=== PATIENT | male | born 1965 | race Caucasian/White ===

== ENCOUNTER 2018-08-11 23:46 | Inpatient (IN) | payer MEDICARE, MEDICAID ==
[~2018-08-11] VITALS: Ht 188 cm; Wt 99.8 kg
[2018-08-12] MEDS ORDERED: RIZA10TA PO (00:04)
[2018-08-12] MEDS ORDERED: FENT1PAT19 TD (00:04)
[2018-08-12] MEDS ORDERED: ALBU2.5V8 IH (00:04)
[2018-08-12] MEDS ORDERED: CITA40TA5 PO (00:04)
[2018-08-12] MEDS ORDERED: NITR0.4T22 SL (00:04)
[2018-08-12] MEDS ORDERED: TERA10CA3 PO (00:04)
[2018-08-12] MEDS ORDERED: HYDR4TAB PO (00:04)
[2018-08-12] MEDS ORDERED: ESOM20CA PO (00:04)
[2018-08-12] MEDS ORDERED: LORA-254 PO (00:04)
[2018-08-12] MEDS ORDERED: LORA10TA3 PO (00:04)
[2018-08-12] MEDS ORDERED: ZOLP10TA PO (00:04)
[2018-08-12] MEDS ORDERED: BACL10TA PO (00:04)
[2018-08-12 01:00] VITALS: BP 145/83
[2018-08-12] MEDS ORDERED: ACETAMINOPHEN 325 MG TABLET PO PRN (01:00)
[2018-08-12] MEDS ORDERED: MAG HYDROX/AL HYDROX/SIMETH 30 ML ORAL.SUSP PO PRN (01:00)
[2018-08-12] MEDS ORDERED: MAGNESIUM HYDROXIDE 2,400 MG/30 ML ORAL.SUSP. PO PRN (01:00)
[2018-08-12] MEDS ORDERED: METHYL SALICYLATE/MENTHOL TOPICAL OINTMENT 29GM TUBE. TP PRN (01:00)
[2018-08-12 05:36] VITALS: BP 123/79
[2018-08-12] MEDS ORDERED: LORazepam 1 MG TABLET PO PRN (07:00)
[2018-08-12] MEDS ORDERED: NITROGLYCERIN SUBLINGUAL 0.4 MG BOTTLE OF 25. SL PRN (07:00)
[2018-08-12] MEDS ORDERED: ALBUTEROL SULFATE 2.5 MG/3 ML NEBU. IH PRN (07:00)
[2018-08-12 07:17] LABS: ALBUMIN/GLOBULIN RATIO 0.9 (1.0-1.7); CALCIUM 8.3 mg/dL (8.5-10.1); CREATININE 0.8 mg/dL (0.7-1.3); GFR 100.7; MAGNESIUM 2.2 mg/dL (1.8-2.4); POTASSIUM 3.6 mmol/L (3.5-5.1); TOTAL BILIRUBIN 0.6 mg/dL (0.2-1.0); TOTAL PROTEIN 6.3 g/dL (6.4-8.2)
[2018-08-12 07:23] LABS: BASO % 1 % (0-3); EOS # 0.2 x10^3/uL (0.0-0.7); EOS % 5 % (0-3); HEMATOCRIT 38.1 % (39.0-53.0); HEMOGLOBIN 12.6 g/dL (13.0-17.5); LYMPH # 1.4 x10^3/uL (1.0-4.8); LYMPH % 35 % (24-48); MEAN CORPUSCULAR HEMOGLOBIN 29 pg (25-35); MEAN CORPUSCULAR HGB CONC 33 g/dL (31-37); MEAN CORPUSCULAR VOLUME 87 fL (79-100); MONO # 0.4 x10^3/uL (0.0-1.1); MONO % 11 % (0-9); NEUT % 49 % (31-73); PLATELET COUNT 145 x10^3/uL (140-400); RED BLOOD COUNT 4.39 x10^6/uL (4.30-5.70); RED CELL DISTRIBUTION WIDTH 14.5 % (11.5-14.5)
[2018-08-12] MEDS ORDERED: SUMAtriptan SUCCINATE 50 MG TABLET PO PRN (07:30)
[2018-08-12] MEDS: PANTOPRAZOLE 40 MG TABLET. PO SCH (07:52)
[2018-08-12] MEDS: BACLOFEN 10 MG TABLET PO SCH ×4 (07:52→20:19)
[2018-08-12] MEDS: CITALOPRAM 20 MG TABLET. PO SCH (07:52)
[2018-08-12] MEDS: fentaNYL 75MCG/HR 1 PATCH PATCH TD SCH (07:54)
[2018-08-12] MEDS ORDERED: CETIRIZINE HCL 10 MG TABLET PO PRN (09:00)
[2018-08-12 10:16] LABS: THYROID STIM HORMONE (TSH) 2.656 uIU/mL (0.358-3.740)
[2018-08-12 11:10] LABS: THYROXINE 6.2 ug/dL (4.5-12.0)
[2018-08-12 15:29] VITALS: BP_SYST 129; BP_SYST 140; BP_DIAS 81
[2018-08-12] MEDS: TERAZOSIN 5 MG CAPSULE. PO SCH (20:28)
[2018-08-12] MEDS: ZOLPIDEM 5 MG TABLET. PO SCH (20:28)
--- NOTE | 2018-08-12 21:48 | PDOC ---
Exam Note: Darion Note: Please also refer to the separate dictated note~for this date of service dictated separately.~Patient seen individually. Discussed the patient with Nursing staff reviewed the chart.~Reviewed interim history and current functioning. Reviewed vital signs,~Labs/ Radiology~and current medications noted below. Continue current treatment with the changes noted in the dictated addendum note Assessment: Vital Signs: Vital Signs Date Time Temp Pulse Resp B/P (MAP) Pulse Ox O2 Delivery O2 Flow Rate FiO2 08/12/18 20:28 76 129/81 08/12/18 15:29 97.8 17 96 Labs: Laboratory Tests Test 08/12/18 06:47 White Blood Count 4.0 x10^3/uL (4.0-11.0) Red Blood Count 4.39 x10^6/uL (4.30-5.70) Hemoglobin 12.6 g/dL (13.0-17.5) L Hematocrit 38.1 % (39.0-53.0) L Mean Corpuscular Volume 87 fL (79-100) Mean Corpuscular Hemoglobin 29 pg (25-35) Mean Corpuscular Hemoglobin Concent 33 g/dL (31-37) Red Cell Distribution Width 14.5 % (11.5-14.5) Platelet Count 145 x10^3/uL (140-400) Neutrophils (%) (Auto) 49 % (31-73) Lymphocytes (%) (Auto) 35 % (24-48) Monocytes (%) (Auto) 11 % (0-9) H Eosinophils (%) (Auto) 5 % (0-3) H Basophils (%) (Auto) 1 % (0-3) Neutrophils # (Auto) 2.0 x10^3uL (1.8-7.7) Lymphocytes # (Auto) 1.4 x10^3/uL (1.0-4.8) Monocytes # (Auto) 0.4 x10^3/uL (0.0-1.1) Eosinophils # (Auto) 0.2 x10^3/uL (0.0-0.7) Basophils # (Auto) 0.0 x10^3/uL (0.0-0.2) Sodium Level 142 mmol/L (136-145) Potassium Level 3.6 mmol/L (3.5-5.1) Chloride Level 105 mmol/L (98-107) Carbon Dioxide Level 30 mmol/L (21-32) Anion Gap 7 (6-14) Blood Urea Nitrogen 13 mg/dL (8-26) Creatinine 0.8 mg/dL (0.7-1.3) Estimated GFR (Cockcroft-Gault) 100.7 BUN/Creatinine Ratio 16 (6-20) Glucose Level 94 mg/dL (70-99) Calcium Level 8.3 mg/dL (8.5-10.1) L Magnesium Level 2.2 mg/dL (1.8-2.4) Iron Level 84 ug/dL (65-175) Total Iron Binding Capacity 262 ug/dL (250-450) Iron Saturation 32 % (15-34) Total Bilirubin 0.6 mg/dL (0.2-1.0) Aspartate Amino Transferase (AST) 11 U/L (15-37) L Alanine Aminotransferase (ALT) 8 U/L (16-63) L Alkaline Phosphatase 67 U/L (46-116) Total Protein 6.3 g/dL (6.4-8.2) L Albumin 3.0 g/dL (3.4-5.0) L Albumin/Globulin Ratio 0.9 (1.0-1.7) L Triglycerides Level 39 mg/dL (0-150) Cholesterol Level 142 mg/dL (0-200) LDL Cholesterol, Calculated 100 mg/dL (0-100) VLDL Cholesterol, Calculated 7 mg/dL (0-40) Non-HDL Cholesterol Calculated 107 mg/dL (0-129) HDL Cholesterol 35 mg/dL (40-60) L Cholesterol/HDL Ratio 4.0 Thyroid Stimulating Hormone (TSH) 2.656 uIU/mL (0.358-3.740) Thyroxine (T4) 6.2 ug/dL (4.5-12.0) Total Triiodothyronine (TT3) 71 ng/dL (71-180) Current Medications: Meds: Current Medications Acetaminophen (Tylenol) 650 mg PRN Q6HRS PRN PO PAIN / TEMP; Start 08/12/18 at 01:00 Multi-Ingredient Ointment (Analgesic [place]) 1 siobhan PRN QID PRN TP MUSCLE PAIN; Start 08/12/18 at 01:00 Al Hydroxide/Mg Hydroxide (Mylanta Plus Xs) 15 ml PRN AFTMEALHC PRN PO DYSPEPSIA; Start 08/12/18 at 01:00 Magnesium Hydroxide (Milk Of Magnesia) 2,400 mg PRN QHS PRN PO CONSTIPATION; Start 08/12/18 at 01:00 Albuterol Sulfate (Ventolin) 2.5 mg PRN Q4HRS PRN IH WHEEZING; Start 08/12/18 at 07:00 Lorazepam (Ativan) 1 mg PRN Q6HRS PRN PO ANXIETY / AGITATION; Start 08/12/18 at 07:00 Nitroglycerin (Nitrostat) 0.4 mg PRN Q5MIN PRN SL CHEST PAIN; Start 08/12/18 at 07:00 Baclofen (Lioresal) 25 mg QID PO Last administered on 08/12/18at 20:19; Start 08/12/18 at 09:00 Citalopram Hydrobromide (CeleXA) 40 mg DAILY PO Last administered on 08/12/18at 07:52; Start 08/12/18 at 09:00 Pantoprazole Sodium (Protonix) 40 mg DAILYAC PO Last administered on 08/12/18at 07:52; Start 08/12/18 at 07:30 Fentanyl (Duragesic 75mcg/ Hr) 1 patch Q3DAYS TD Last administered on 08/12/18at 07:54; Start 08/12/18 at 09:00 Hydromorphone HCl (Dilaudid) 8 mg PRN Q4HRS PRN PO PAIN; Start 08/12/18 at 07:30 Cetirizine HCl (ZyrTEC) 10 mg PRN DAILY PRN PO ALLERGIES; Start 08/12/18 at 09: 00 Sumatriptan Succinate (Imitrex) 100 mg PRN DAILY PRN PO MIGRAINE HEADACHE; Start 08/12/18 at 07:30 Terazosin HCl (Hytrin) 10 mg QHS PO Last administered on 08/12/18at 20:28; Start 08/12/18 at 21:00 Zolpidem Tartrate (Ambien) 5 mg HS PO Last administered on 08/12/18at 20:28; Start 08/12/18 at 21:00 Zolpidem Tartrate (Ambien) 5 mg PRN QHS PRN PO INSOMNIA, MR X1 WITHIN 2 HRS; Start 08/12/18 at 07:30 Active Scripts Active Reported FENTANYL 75mcg/hr (Fentanyl) 1 Each Patch.td72 1 Patch TD Q72H NITROGLYCERIN SubLingual (Nitroglycerin) 0.4 Mg Tab.subl 0.4 Mg SL PRN Q5MIN PRN Hydromorphone Hcl 4 Mg Tablet 8 Mg PO PRN Q4HRS PRN Baclofen 10 Mg Tablet 25 Mg PO QID Ventolin Hfa Inhaler (Albuterol Sulfate) 18 Gm Hfa.aer.ad 2 Puff IH PRN Q4HRS PRN Ativan (Lorazepam) 1 Mg Tablet 1 Mg PO PRN Q6HRS PRN Maxalt (Rizatriptan Benzoate) 10 Mg Tablet 10 Mg PO PRN DAILY PRN Loratadine 10 Mg Tablet 10 Mg PO PRN DAILY PRN Nexium Capsule (Esomeprazole Magnesium) 20 Mg Capsule.dr 20 Mg PO DAILYAC Citalopram Hbr (Citalopram Hydrobromide) 40 Mg Tablet 40 Mg PO DAILY Ambien (Zolpidem Tartrate) 10 Mg Tablet 10 Mg PO HS Terazosin Hcl 10 Mg Capsule 10 Mg PO HS I have reviewed the current psychotropics carefully including drug interactions. Risk benefit ratio favors no change other than as noted in my dictated progress note. Diagnosis: Problems: (1) Anxiety disorder (2) Major depressive disorder, recurrent episode (3) Impulse control disorder KENN CRAFT MD Aug 12, 2018 21:48
[2018-08-13 05:35] LABS: HEMOGLOBIN A1C 5.1 % (4.8-5.6)
[2018-08-13 05:41] VITALS: BP 103/67
[2018-08-13] MEDS: BACLOFEN 10 MG TABLET PO SCH ×4 (08:20→20:38)
[2018-08-13] MEDS: PANTOPRAZOLE 40 MG TABLET. PO SCH (08:20)
[2018-08-13] MEDS: CITALOPRAM 20 MG TABLET. PO SCH (08:21)
[2018-08-13] MEDS: SERTRALINE 50 MG TABLET. PO SCH (08:21)
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
[2018-08-13 16:00] VITALS: BP 114/70
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
[2018-08-13] MEDS: ZOLPIDEM 5 MG TABLET. PO SCH (20:39)
[2018-08-13] MEDS: TERAZOSIN 5 MG CAPSULE. PO SCH (20:39)
--- NOTE | 2018-08-13 22:34 | PDOC ---
Exam Note: Darion Note: Please also refer to the separate dictated note~for this date of service dictated separately.~Patient seen individually. Discussed the patient with Nursing staff reviewed the chart.~Reviewed interim history and current functioning. Reviewed vital signs,~Labs/ Radiology~and current medications noted below. Continue current treatment with the changes noted in the dictated addendum note Assessment: Vital Signs: Vital Signs Date Time Temp Pulse Resp B/P (MAP) Pulse Ox O2 Delivery O2 Flow Rate FiO2 08/13/18 20:39 91 114/70 08/13/18 16:00 98.1 18 98 08/13/18 05:41 Room Air I&O Intake and Output 08/13/18 07:00 Intake Total 720 ml Balance 720 ml Intake Oral 720 ml Current Medications: Meds: Current Medications Acetaminophen (Tylenol) 650 mg PRN Q6HRS PRN PO PAIN / TEMP; Start 08/12/18 at 01:00 Multi-Ingredient Ointment (Analgesic [place]) 1 siobhan PRN QID PRN TP MUSCLE PAIN; Start 08/12/18 at 01:00 Al Hydroxide/Mg Hydroxide (Mylanta Plus Xs) 15 ml PRN AFTMEALHC PRN PO DYSPEPSIA; Start 08/12/18 at 01:00 Magnesium Hydroxide (Milk Of Magnesia) 2,400 mg PRN QHS PRN PO CONSTIPATION; Start 08/12/18 at 01:00 Albuterol Sulfate (Ventolin) 2.5 mg PRN Q4HRS PRN IH WHEEZING; Start 08/12/18 at 07:00 Lorazepam (Ativan) 1 mg PRN Q6HRS PRN PO ANXIETY / AGITATION; Start 08/12/18 at 07:00 Nitroglycerin (Nitrostat) 0.4 mg PRN Q5MIN PRN SL CHEST PAIN; Start 08/12/18 at 07:00 Baclofen (Lioresal) 25 mg QID PO Last administered on 08/13/18at 20:38; Start 08/12/18 at 09:00 Citalopram Hydrobromide (CeleXA) 40 mg DAILY PO Last administered on 08/13/18at 08:21; Start 08/12/18 at 09:00 Pantoprazole Sodium (Protonix) 40 mg DAILYAC PO Last administered on 08/13/18at 08:20; Start 08/12/18 at 07:30 Fentanyl (Duragesic 75mcg/ Hr) 1 patch Q3DAYS TD Last administered on 08/12/18at 07:54; Start 08/12/18 at 09:00 Hydromorphone HCl (Dilaudid) 8 mg PRN Q4HRS PRN PO PAIN; Start 08/12/18 at 07:30 Cetirizine HCl (ZyrTEC) 10 mg PRN DAILY PRN PO ALLERGIES; Start 08/12/18 at 09: 00 Sumatriptan Succinate (Imitrex) 100 mg PRN DAILY PRN PO MIGRAINE HEADACHE; Start 08/12/18 at 07:30 Terazosin HCl (Hytrin) 10 mg QHS PO Last administered on 08/13/18at 20:39; Start 08/12/18 at 21:00 Zolpidem Tartrate (Ambien) 5 mg HS PO Last administered on 08/13/18at 20:39; Start 08/12/18 at 21:00 Zolpidem Tartrate (Ambien) 5 mg PRN QHS PRN PO INSOMNIA, MR X1 WITHIN 2 HRS; Start 08/12/18 at 07:30 Sertraline HCl (Zoloft) 50 mg DAILY PO Last administered on 08/13/18at 08:21; Start 08/13/18 at 09:00 Active Scripts Active Reported FENTANYL 75mcg/hr (Fentanyl) 1 Each Patch.td72 1 Patch TD Q72H NITROGLYCERIN SubLingual (Nitroglycerin) 0.4 Mg Tab.subl 0.4 Mg SL PRN Q5MIN PRN Hydromorphone Hcl 4 Mg Tablet 8 Mg PO PRN Q4HRS PRN Baclofen 10 Mg Tablet 25 Mg PO QID Ventolin Hfa Inhaler (Albuterol Sulfate) 18 Gm Hfa.aer.ad 2 Puff IH PRN Q4HRS PRN Ativan (Lorazepam) 1 Mg Tablet 1 Mg PO PRN Q6HRS PRN Maxalt (Rizatriptan Benzoate) 10 Mg Tablet 10 Mg PO PRN DAILY PRN Loratadine 10 Mg Tablet 10 Mg PO PRN DAILY PRN Nexium Capsule (Esomeprazole Magnesium) 20 Mg Capsule.dr 20 Mg PO DAILYAC Citalopram Hbr (Citalopram Hydrobromide) 40 Mg Tablet 40 Mg PO DAILY Ambien (Zolpidem Tartrate) 10 Mg Tablet 10 Mg PO HS Terazosin Hcl 10 Mg Capsule 10 Mg PO HS I have reviewed the current psychotropics carefully including drug interactions. Risk benefit ratio favors no change other than as noted in my dictated progress note. Diagnosis: Problems: (1) Anxiety disorder (2) Major depressive disorder, recurrent episode (3) Impulse control disorder KENN CRAFT MD Aug 13, 2018 22:34
[2018-08-14 05:41] VITALS: BP 121/74
[2018-08-14] MEDS: SERTRALINE 50 MG TABLET. PO SCH (07:40)
[2018-08-14] MEDS: PANTOPRAZOLE 40 MG TABLET. PO SCH (07:40)
[2018-08-14] MEDS: CITALOPRAM 20 MG TABLET. PO SCH (07:40)
[2018-08-14] MEDS: BACLOFEN 10 MG TABLET PO SCH ×4 (07:41→20:47)
[2018-08-14 16:11] VITALS: BP 124/70
--- NOTE | 2018-08-14 20:10 | PN ---
DATE: 08/13/2018 PSYCHIATRIC PROGRESS NOTE This late entry 08/13/2018 covers elements not covered in my initial note. SUBJECTIVE: I met with the patient in the evening. The patient was seen in his room at length. He slept 6 hours previous night. He has been somewhat withdrawn, anxious, but not aggressive. REVIEW OF SYSTEMS: No CV, , pulmonary, eye system symptoms on review. MENTAL STATUS EXAM: Reasonably oriented. Speech has some latency, coherent. Ambulation impaired. Abstraction fair, computation impaired, language function intact, attention span short. Mood and affect somewhat withdrawn, depressed, anxious. LABORATORY DATA: Reviewed. IMPRESSION: Unchanged from initial note. PLAN: Celexa has been changed to Zoloft 50 mg a day. We will adjust gradually. Rest unchanged. MAN Svetlana CRAFT MD DR: SUNIL/mikhail JOB#: [id number] / [id number]
[2018-08-14] MEDS: TERAZOSIN 5 MG CAPSULE. PO SCH (20:47)
[2018-08-14] MEDS: ZOLPIDEM 5 MG TABLET. PO SCH (20:52)
--- NOTE | 2018-08-14 22:28 | PDOC ---
Exam Note: Darion Note: Please also refer to the separate dictated note~for this date of service dictated separately.~Patient seen individually. Discussed the patient with Nursing staff reviewed the chart.~Reviewed interim history and current functioning. Reviewed vital signs,~Labs/ Radiology~and current medications noted below. Continue current treatment with the changes noted in the dictated addendum note Assessment: Vital Signs: Vital Signs Date Time Temp Pulse Resp B/P (MAP) Pulse Ox O2 Delivery O2 Flow Rate FiO2 08/14/18 20:47 79 124/70 08/14/18 16:11 97.9 18 95 Room Air I&O Intake and Output 08/14/18 07:00 Intake Total 1200 ml Balance 1200 ml Intake Oral 1200 ml Current Medications: Meds: Current Medications Acetaminophen (Tylenol) 650 mg PRN Q6HRS PRN PO PAIN / TEMP; Start 08/12/18 at 01:00 Multi-Ingredient Ointment (Analgesic [place]) 1 siobhan PRN QID PRN TP MUSCLE PAIN; Start 08/12/18 at 01:00 Al Hydroxide/Mg Hydroxide (Mylanta Plus Xs) 15 ml PRN AFTMEALHC PRN PO DYSPEPSIA; Start 08/12/18 at 01:00 Magnesium Hydroxide (Milk Of Magnesia) 2,400 mg PRN QHS PRN PO CONSTIPATION; Start 08/12/18 at 01:00 Albuterol Sulfate (Ventolin) 2.5 mg PRN Q4HRS PRN IH WHEEZING; Start 08/12/18 at 07:00 Lorazepam (Ativan) 1 mg PRN Q6HRS PRN PO ANXIETY / AGITATION; Start 08/12/18 at 07:00 Nitroglycerin (Nitrostat) 0.4 mg PRN Q5MIN PRN SL CHEST PAIN; Start 08/12/18 at 07:00 Baclofen (Lioresal) 25 mg QID PO Last administered on 08/14/18at 20:47; Start 08/12/18 at 09:00 Citalopram Hydrobromide (CeleXA) 40 mg DAILY PO Last administered on 08/14/18at 07:40; Start 08/12/18 at 09:00 Pantoprazole Sodium (Protonix) 40 mg DAILYAC PO Last administered on 08/14/18at 07:40; Start 08/12/18 at 07:30 Fentanyl (Duragesic 75mcg/ Hr) 1 patch Q3DAYS TD Last administered on 08/12/18at 07:54; Start 08/12/18 at 09:00 Hydromorphone HCl (Dilaudid) 8 mg PRN Q4HRS PRN PO PAIN; Start 08/12/18 at 07:30 Cetirizine HCl (ZyrTEC) 10 mg PRN DAILY PRN PO ALLERGIES; Start 08/12/18 at 09: 00 Sumatriptan Succinate (Imitrex) 100 mg PRN DAILY PRN PO MIGRAINE HEADACHE; Start 08/12/18 at 07:30 Terazosin HCl (Hytrin) 10 mg QHS PO Last administered on 08/14/18at 20:47; Start 08/12/18 at 21:00 Zolpidem Tartrate (Ambien) 5 mg HS PO Last administered on 08/14/18at 20:52; Start 08/12/18 at 21:00 Zolpidem Tartrate (Ambien) 5 mg PRN QHS PRN PO INSOMNIA, MR X1 WITHIN 2 HRS; Start 08/12/18 at 07:30 Sertraline HCl (Zoloft) 50 mg DAILY PO Last administered on 08/14/18at 07:40; Start 08/13/18 at 09:00 Active Scripts Active Reported FENTANYL 75mcg/hr (Fentanyl) 1 Each Patch.td72 1 Patch TD Q72H NITROGLYCERIN SubLingual (Nitroglycerin) 0.4 Mg Tab.subl 0.4 Mg SL PRN Q5MIN PRN Hydromorphone Hcl 4 Mg Tablet 8 Mg PO PRN Q4HRS PRN Baclofen 10 Mg Tablet 25 Mg PO QID Ventolin Hfa Inhaler (Albuterol Sulfate) 18 Gm Hfa.aer.ad 2 Puff IH PRN Q4HRS PRN Ativan (Lorazepam) 1 Mg Tablet 1 Mg PO PRN Q6HRS PRN Maxalt (Rizatriptan Benzoate) 10 Mg Tablet 10 Mg PO PRN DAILY PRN Loratadine 10 Mg Tablet 10 Mg PO PRN DAILY PRN Nexium Capsule (Esomeprazole Magnesium) 20 Mg Capsule.dr 20 Mg PO DAILYAC Citalopram Hbr (Citalopram Hydrobromide) 40 Mg Tablet 40 Mg PO DAILY Ambien (Zolpidem Tartrate) 10 Mg Tablet 10 Mg PO HS Terazosin Hcl 10 Mg Capsule 10 Mg PO HS I have reviewed the current psychotropics carefully including drug interactions. Risk benefit ratio favors no change other than as noted in my dictated progress note. Diagnosis: Problems: (1) Anxiety disorder (2) Major depressive disorder, recurrent episode (3) Impulse control disorder KENN CRAFT MD Aug 14, 2018 22:28
[2018-08-15 05:44] VITALS: BP 129/75
[2018-08-15] MEDS: BACLOFEN 10 MG TABLET PO SCH ×4 (08:28→21:00)
[2018-08-15] MEDS: PANTOPRAZOLE 40 MG TABLET. PO SCH (08:29)
[2018-08-15] MEDS: SERTRALINE 50 MG TABLET. PO SCH (08:29)
[2018-08-15] MEDS: CITALOPRAM 20 MG TABLET. PO SCH (08:29)
[2018-08-15] MEDS: fentaNYL 75MCG/HR 1 PATCH PATCH TD SCH (08:31)
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
[2018-08-15 16:09] VITALS: BP 136/73
[2018-08-15] MEDS: ZOLPIDEM 5 MG TABLET. PO SCH ×2 (20:59→23:15)
[2018-08-15] MEDS: TERAZOSIN 5 MG CAPSULE. PO SCH (21:00)
--- NOTE | 2018-08-15 22:01 | PDOC ---
Exam Note: Darion Note: Please also refer to the separate dictated note~for this date of service dictated separately.~Patient seen individually. Discussed the patient with Nursing staff reviewed the chart.~Reviewed interim history and current functioning. Reviewed vital signs,~Labs/ Radiology~and current medications noted below. Continue current treatment with the changes noted in the dictated addendum note Assessment: Vital Signs: Vital Signs Date Time Temp Pulse Resp B/P (MAP) Pulse Ox O2 Delivery O2 Flow Rate FiO2 08/15/18 21:00 77 136/73 08/15/18 16:09 97.8 16 96 Room Air I&O Intake and Output 08/15/18 06:59 Intake Total 1080 ml Balance 1080 ml Intake Oral 1080 ml Current Medications: Meds: Current Medications Acetaminophen (Tylenol) 650 mg PRN Q6HRS PRN PO PAIN / TEMP; Start 08/12/18 at 01:00 Multi-Ingredient Ointment (Analgesic [place]) 1 siobhan PRN QID PRN TP MUSCLE PAIN; Start 08/12/18 at 01:00 Al Hydroxide/Mg Hydroxide (Mylanta Plus Xs) 15 ml PRN AFTMEALHC PRN PO DYSPEPSIA; Start 08/12/18 at 01:00 Magnesium Hydroxide (Milk Of Magnesia) 2,400 mg PRN QHS PRN PO CONSTIPATION; Start 08/12/18 at 01:00 Albuterol Sulfate (Ventolin) 2.5 mg PRN Q4HRS PRN IH WHEEZING; Start 08/12/18 at 07:00 Lorazepam (Ativan) 1 mg PRN Q6HRS PRN PO ANXIETY / AGITATION; Start 08/12/18 at 07:00 Nitroglycerin (Nitrostat) 0.4 mg PRN Q5MIN PRN SL CHEST PAIN; Start 08/12/18 at 07:00 Baclofen (Lioresal) 25 mg QID PO Last administered on 08/15/18at 21:00; Start 08/12/18 at 09:00 Citalopram Hydrobromide (CeleXA) 40 mg DAILY PO Last administered on 08/15/18at 08:29; Start 08/12/18 at 09:00 Pantoprazole Sodium (Protonix) 40 mg DAILYAC PO Last administered on 08/15/18at 08:29; Start 08/12/18 at 07:30 Fentanyl (Duragesic 75mcg/ Hr) 1 patch Q3DAYS TD Last administered on 08/15/18at 08:31; Start 08/12/18 at 09:00 Hydromorphone HCl (Dilaudid) 8 mg PRN Q4HRS PRN PO PAIN; Start 08/12/18 at 07:30 Cetirizine HCl (ZyrTEC) 10 mg PRN DAILY PRN PO ALLERGIES; Start 08/12/18 at 09: 00 Sumatriptan Succinate (Imitrex) 100 mg PRN DAILY PRN PO MIGRAINE HEADACHE; Start 08/12/18 at 07:30 Terazosin HCl (Hytrin) 10 mg QHS PO Last administered on 08/15/18at 21:00; Start 08/12/18 at 21:00 Zolpidem Tartrate (Ambien) 5 mg HS PO Last administered on 08/15/18at 20:59; Start 08/12/18 at 21:00 Zolpidem Tartrate (Ambien) 5 mg PRN QHS PRN PO INSOMNIA, MR X1 WITHIN 2 HRS; Start 08/12/18 at 07:30 Sertraline HCl (Zoloft) 50 mg DAILY PO Last administered on 08/15/18at 08:29; Start 08/13/18 at 09:00 Active Scripts Active Reported FENTANYL 75mcg/hr (Fentanyl) 1 Each Patch.td72 1 Patch TD Q72H NITROGLYCERIN SubLingual (Nitroglycerin) 0.4 Mg Tab.subl 0.4 Mg SL PRN Q5MIN PRN Hydromorphone Hcl 4 Mg Tablet 8 Mg PO PRN Q4HRS PRN Baclofen 10 Mg Tablet 25 Mg PO QID Ventolin Hfa Inhaler (Albuterol Sulfate) 18 Gm Hfa.aer.ad 2 Puff IH PRN Q4HRS PRN Ativan (Lorazepam) 1 Mg Tablet 1 Mg PO PRN Q6HRS PRN Maxalt (Rizatriptan Benzoate) 10 Mg Tablet 10 Mg PO PRN DAILY PRN Loratadine 10 Mg Tablet 10 Mg PO PRN DAILY PRN Nexium Capsule (Esomeprazole Magnesium) 20 Mg Capsule.dr 20 Mg PO DAILYAC Citalopram Hbr (Citalopram Hydrobromide) 40 Mg Tablet 40 Mg PO DAILY Ambien (Zolpidem Tartrate) 10 Mg Tablet 10 Mg PO HS Terazosin Hcl 10 Mg Capsule 10 Mg PO HS I have reviewed the current psychotropics carefully including drug interactions. Risk benefit ratio favors no change other than as noted in my dictated progress note. Diagnosis: Problems: (1) Anxiety disorder (2) Major depressive disorder, recurrent episode (3) Impulse control disorder KENN CRAFT MD Aug 15, 2018 22:01
[2018-08-16 05:39] VITALS: BP 124/77
[2018-08-16] MEDS: SERTRALINE 50 MG TABLET. PO SCH (09:40)
[2018-08-16] MEDS: BACLOFEN 10 MG TABLET PO SCH ×4 (09:41→21:00)
[2018-08-16] MEDS: PANTOPRAZOLE 40 MG TABLET. PO SCH (09:41)
--- NOTE | 2018-08-16 13:30 | EKG ---
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
[2018-08-16 16:11] VITALS: BP 92/57
--- NOTE | 2018-08-16 19:31 | PN ---
DATE: 08/15/2018 PSYCHIATRIC PROGRESS NOTE This late entry 08/15/2018 covers elements not covered in my initial note. SUBJECTIVE: I met with the patient individually in his room. He is lying in bed, somewhat withdrawn, even withdrawn at night. REVIEW OF SYSTEMS: Impaired ambulation, at times in wheelchair. No CV, , pulmonary, eye system symptoms on review. MENTAL STATUS EXAM: Reasonably oriented. Speech has some latency, coherent. Abstraction fair, computation impaired, language function intact, attention span short. Mood and affect somewhat withdrawn. LABORATORY DATA: Reviewed. IMPRESSION: Major depressive disorder, recurrent and impulse control disorder; anxiety disorder, unspecified. PLAN: The patient has been started on Zoloft 50 mg a day. We will stop the Celexa. Continue Ambien p.r.n. Rest unchanged for now. MAN Svetlana CRAFT MD DR: SUNIL/mikhail JOB#: [id number] / [id number]
[2018-08-16] MEDS: TERAZOSIN 5 MG CAPSULE. PO SCH (21:01)
[2018-08-16] MEDS: ZOLPIDEM 5 MG TABLET. PO SCH (21:03)
[2018-08-16] MEDS: ZOLPIDEM 5 MG TABLET. PO PRN ×2 (21:04→21:08)
--- NOTE | 2018-08-16 22:14 | PDOC ---
Exam Note: Darion Note: Please also refer to the separate dictated note~for this date of service dictated separately.~Patient seen individually. Discussed the patient with Nursing staff reviewed the chart.~Reviewed interim history and current functioning. Reviewed vital signs,~Labs/ Radiology~and current medications noted below. Continue current treatment with the changes noted in the dictated addendum note Assessment: Vital Signs: Vital Signs Date Time Temp Pulse Resp B/P (MAP) Pulse Ox O2 Delivery O2 Flow Rate FiO2 08/16/18 21:01 69 105/68 08/16/18 16:11 98.1 16 98 08/15/18 16:09 Room Air I&O Intake and Output 08/16/18 06:59 Intake Total 960 ml Balance 960 ml Intake Oral 960 ml Current Medications: Meds: Current Medications Acetaminophen (Tylenol) 650 mg PRN Q6HRS PRN PO PAIN / TEMP; Start 08/12/18 at 01:00 Multi-Ingredient Ointment (Analgesic [place]) 1 siobhan PRN QID PRN TP MUSCLE PAIN; Start 08/12/18 at 01:00 Al Hydroxide/Mg Hydroxide (Mylanta Plus Xs) 15 ml PRN AFTMEALHC PRN PO DYSPEPSIA; Start 08/12/18 at 01:00 Magnesium Hydroxide (Milk Of Magnesia) 2,400 mg PRN QHS PRN PO CONSTIPATION; Start 08/12/18 at 01:00 Albuterol Sulfate (Ventolin) 2.5 mg PRN Q4HRS PRN IH WHEEZING; Start 08/12/18 at 07:00 Lorazepam (Ativan) 1 mg PRN Q6HRS PRN PO ANXIETY / AGITATION; Start 08/12/18 at 07:00 Nitroglycerin (Nitrostat) 0.4 mg PRN Q5MIN PRN SL CHEST PAIN; Start 08/12/18 at 07:00 Baclofen (Lioresal) 25 mg QID PO Last administered on 08/16/18at 21:00; Start 08/12/18 at 09:00 Citalopram Hydrobromide (CeleXA) 40 mg DAILY PO Last administered on 08/15/18at 08:29; Start 08/12/18 at 09:00; Stop 08/16/18 at 09:47; Status DC Pantoprazole Sodium (Protonix) 40 mg DAILYAC PO Last administered on 08/16/18 09:41; Start 08/12/18 at 07:30 Fentanyl (Duragesic 75mcg/ Hr) 1 patch Q3DAYS TD Last administered on 08/15/18 08:31; Start 08/12/18 at 09:00 Hydromorphone HCl (Dilaudid) 8 mg PRN Q4HRS PRN PO PAIN; Start 08/12/18 at 07:30 Cetirizine HCl (ZyrTEC) 10 mg PRN DAILY PRN PO ALLERGIES; Start 08/12/18 at 09: 00 Sumatriptan Succinate (Imitrex) 100 mg PRN DAILY PRN PO MIGRAINE HEADACHE Last administered on 08/15/18 23:16; Start 08/12/18 at 07:30 Terazosin HCl (Hytrin) 10 mg QHS PO Last administered on 08/16/18 21:01; Start 08/12/18 at 21:00 Zolpidem Tartrate (Ambien) 5 mg HS PO Last administered on 08/16/18 21:03; Start 08/12/18 at 21:00 Zolpidem Tartrate (Ambien) 5 mg PRN QHS PRN PO INSOMNIA, MR X1 WITHIN 2 HRS Last administered on 08/16/18 21:08; Start 08/12/18 at 07:30 Sertraline HCl (Zoloft) 50 mg DAILY PO Last administered on 08/16/18 09:40; Start 08/13/18 at 09:00; Stop 08/16/18 at 16:48; Status DC Sertraline HCl (Zoloft) 75 mg DAILY PO ; Start 08/17/18 at 09:00 Active Scripts Active Reported FENTANYL 75mcg/hr (Fentanyl) 1 Each Patch.td72 1 Patch TD Q72H NITROGLYCERIN SubLingual (Nitroglycerin) 0.4 Mg Tab.subl 0.4 Mg SL PRN Q5MIN PRN Hydromorphone Hcl 4 Mg Tablet 8 Mg PO PRN Q4HRS PRN Baclofen 10 Mg Tablet 25 Mg PO QID Ventolin Hfa Inhaler (Albuterol Sulfate) 18 Gm Hfa.aer.ad 2 Puff IH PRN Q4HRS PRN Ativan (Lorazepam) 1 Mg Tablet 1 Mg PO PRN Q6HRS PRN Maxalt (Rizatriptan Benzoate) 10 Mg Tablet 10 Mg PO PRN DAILY PRN Loratadine 10 Mg Tablet 10 Mg PO PRN DAILY PRN Nexium Capsule (Esomeprazole Magnesium) 20 Mg Capsule.dr 20 Mg PO DAILYAC Citalopram Hbr (Citalopram Hydrobromide) 40 Mg Tablet 40 Mg PO DAILY Ambien (Zolpidem Tartrate) 10 Mg Tablet 10 Mg PO HS Terazosin Hcl 10 Mg Capsule 10 Mg PO HS I have reviewed the current psychotropics carefully including drug interactions. Risk benefit ratio favors no change other than as noted in my dictated progress note. Diagnosis: Problems: (1) Anxiety disorder (2) Major depressive disorder, recurrent episode (3) Impulse control disorder KENN CRAFT MD Aug 16, 2018 22:14
[2018-08-16] MEDS ORDERED: ZOLPIDEM 5 MG TABLET. PO ONE (23:45)
[2018-08-17 05:59] VITALS: BP 110/71
[2018-08-17] MEDS: PANTOPRAZOLE 40 MG TABLET. PO SCH (07:51)
[2018-08-17] MEDS: BACLOFEN 10 MG TABLET PO SCH ×4 (07:52→20:04)
[2018-08-17] MEDS: SERTRALINE 50 MG TABLET. PO SCH (07:53)
[2018-08-17 16:21] VITALS: BP 118/72
[2018-08-17] MEDS: TERAZOSIN 5 MG CAPSULE. PO SCH (20:02)
[2018-08-17] MEDS: ZOLPIDEM 5 MG TABLET. PO SCH (20:03)
--- NOTE | 2018-08-17 22:09 | PDOC ---
Exam Note: Darion Note: Please also refer to the separate dictated note~for this date of service dictated separately.~Patient seen individually. Discussed the patient with Nursing staff reviewed the chart.~Reviewed interim history and current functioning. Reviewed vital signs,~Labs/ Radiology~and current medications noted below. Continue current treatment with the changes noted in the dictated addendum note Assessment: Vital Signs: Vital Signs Date Time Temp Pulse Resp B/P (MAP) Pulse Ox O2 Delivery O2 Flow Rate FiO2 08/17/18 20:02 84 118/72 08/17/18 16:21 98.2 16 95 Room Air I&O Intake and Output 08/17/18 06:59 Intake Total 540 ml Balance 540 ml Intake Oral 540 ml # Voids 1 # Bowel Movements 1 Current Medications: Meds: Current Medications Acetaminophen (Tylenol) 650 mg PRN Q6HRS PRN PO PAIN / TEMP; Start 08/12/18 at 01:00 Multi-Ingredient Ointment (Analgesic [place]) 1 siobhan PRN QID PRN TP MUSCLE PAIN; Start 08/12/18 at 01:00 Al Hydroxide/Mg Hydroxide (Mylanta Plus Xs) 15 ml PRN AFTMEALHC PRN PO DYSPEPSIA; Start 08/12/18 at 01:00 Magnesium Hydroxide (Milk Of Magnesia) 2,400 mg PRN QHS PRN PO CONSTIPATION; Start 08/12/18 at 01:00 Albuterol Sulfate (Ventolin) 2.5 mg PRN Q4HRS PRN IH WHEEZING; Start 08/12/18 at 07:00 Lorazepam (Ativan) 1 mg PRN Q6HRS PRN PO ANXIETY / AGITATION; Start 08/12/18 at 07:00 Nitroglycerin (Nitrostat) 0.4 mg PRN Q5MIN PRN SL CHEST PAIN; Start 08/12/18 at 07:00 Baclofen (Lioresal) 25 mg QID PO Last administered on 08/17/18at 20:04; Start 08/12/18 at 09:00 Citalopram Hydrobromide (CeleXA) 40 mg DAILY PO Last administered on 08/15/18at 08:29; Start 08/12/18 at 09:00; Stop 08/16/18 at 09:47; Status DC Pantoprazole Sodium (Protonix) 40 mg DAILYAC PO Last administered on 08/17/18 07:51; Start 08/12/18 at 07:30 Fentanyl (Duragesic 75mcg/ Hr) 1 patch Q3DAYS TD Last administered on 08/15/18 08:31; Start 08/12/18 at 09:00 Hydromorphone HCl (Dilaudid) 8 mg PRN Q4HRS PRN PO PAIN; Start 08/12/18 at 07:30 Cetirizine HCl (ZyrTEC) 10 mg PRN DAILY PRN PO ALLERGIES; Start 08/12/18 at 09: 00 Sumatriptan Succinate (Imitrex) 100 mg PRN DAILY PRN PO MIGRAINE HEADACHE Last administered on 08/15/18 23:16; Start 08/12/18 at 07:30 Terazosin HCl (Hytrin) 10 mg QHS PO Last administered on 08/17/18 20:02; Start 08/12/18 at 21:00 Zolpidem Tartrate (Ambien) 5 mg HS PO Last administered on 08/17/18 20:03; Start 08/12/18 at 21:00 Zolpidem Tartrate (Ambien) 5 mg PRN QHS PRN PO INSOMNIA, MR X1 WITHIN 2 HRS Last administered on 08/16/18 21:08; Start 08/12/18 at 07:30 Sertraline HCl (Zoloft) 50 mg DAILY PO Last administered on 08/16/18 09:40; Start 08/13/18 at 09:00; Stop 08/16/18 at 16:48; Status DC Sertraline HCl (Zoloft) 75 mg DAILY PO Last administered on 08/17/18 07:53; Start 08/17/18 at 09:00 Zolpidem Tartrate (Ambien) 5 mg 1X ONCE PO Last administered on 08/16/18 23:45 ; Start 08/16/18 at 23:45; Stop 08/16/18 at 23:46; Status DC Bupropion HCl (Wellbutrin Xl) 150 mg DAILY PO ; Start 08/18/18 at 09:00 Active Scripts Active Reported FENTANYL 75mcg/hr (Fentanyl) 1 Each Patch.td72 1 Patch TD Q72H NITROGLYCERIN SubLingual (Nitroglycerin) 0.4 Mg Tab.subl 0.4 Mg SL PRN Q5MIN PRN Hydromorphone Hcl 4 Mg Tablet 8 Mg PO PRN Q4HRS PRN Baclofen 10 Mg Tablet 25 Mg PO QID Ventolin Hfa Inhaler (Albuterol Sulfate) 18 Gm Hfa.aer.ad 2 Puff IH PRN Q4HRS PRN Ativan (Lorazepam) 1 Mg Tablet 1 Mg PO PRN Q6HRS PRN Maxalt (Rizatriptan Benzoate) 10 Mg Tablet 10 Mg PO PRN DAILY PRN Loratadine 10 Mg Tablet 10 Mg PO PRN DAILY PRN Nexium Capsule (Esomeprazole Magnesium) 20 Mg Capsule.dr 20 Mg PO DAILYAC Citalopram Hbr (Citalopram Hydrobromide) 40 Mg Tablet 40 Mg PO DAILY Ambien (Zolpidem Tartrate) 10 Mg Tablet 10 Mg PO HS Terazosin Hcl 10 Mg Capsule 10 Mg PO HS I have reviewed the current psychotropics carefully including drug interactions. Risk benefit ratio favors no change other than as noted in my dictated progress note. Diagnosis: Problems: (1) Anxiety disorder (2) Major depressive disorder, recurrent episode (3) Impulse control disorder KENN CRAFT MD Aug 17, 2018 22:09
[2018-08-17] MEDS: ZOLPIDEM 5 MG TABLET. PO PRN (23:14)
[2018-08-18 06:32] VITALS: BP 107/69
[2018-08-18 07:39] LABS: BASO % 1 % (0-3); EOS # 0.2 x10^3/uL (0.0-0.7); EOS % 6 % (0-3); HEMATOCRIT 36.9 % (39.0-53.0); HEMOGLOBIN 12.3 g/dL (13.0-17.5); LYMPH # 1.1 x10^3/uL (1.0-4.8); LYMPH % 27 % (24-48); MEAN CORPUSCULAR HEMOGLOBIN 29 pg (25-35); MEAN CORPUSCULAR HGB CONC 33 g/dL (31-37); MEAN CORPUSCULAR VOLUME 87 fL (79-100); MONO # 0.6 x10^3/uL (0.0-1.1); MONO % 14 % (0-9); NEUT # 2.1 x10^3uL (1.8-7.7); NEUT % 52 % (31-73); PLATELET COUNT 127 x10^3/uL (140-400); RED BLOOD COUNT 4.24 x10^6/uL (4.30-5.70); RED CELL DISTRIBUTION WIDTH 14.5 % (11.5-14.5); WHITE BLOOD COUNT 4.1 x10^3/uL (4.0-11.0)
[2018-08-18] MEDS: PANTOPRAZOLE 40 MG TABLET. PO SCH (07:52)
[2018-08-18] MEDS: BACLOFEN 10 MG TABLET PO SCH ×4 (07:52→19:57)
[2018-08-18] MEDS: SERTRALINE 50 MG TABLET. PO SCH (07:53)
[2018-08-18] MEDS: buPROPion XL 150 MG TAB.ER.24H PO SCH (07:55)
[2018-08-18 08:08] LABS: ALBUMIN 3.3 g/dL (3.4-5.0); ALBUMIN/GLOBULIN RATIO 1.1 (1.0-1.7); CALCIUM 8.5 mg/dL (8.5-10.1); CREATININE 0.7 mg/dL (0.7-1.3); GFR 117.5; POTASSIUM 4.2 mmol/L (3.5-5.1); TOTAL BILIRUBIN 0.5 mg/dL (0.2-1.0); TOTAL PROTEIN 6.3 g/dL (6.4-8.2)
[2018-08-18] MEDS: fentaNYL 75MCG/HR 1 PATCH PATCH TD SCH (08:37)
[2018-08-18 16:16] VITALS: BP 107/66
[2018-08-18] MEDS: ZOLPIDEM 5 MG TABLET. PO SCH (19:57)
[2018-08-18] MEDS: TERAZOSIN 5 MG CAPSULE. PO SCH (19:58)
--- NOTE | 2018-08-18 19:58 | PN ---
DATE: 08/16/2018 PSYCHIATRIC PROGRESS NOTE This late entry 08/16/2018 covers elements not covered in my initial note. SUBJECTIVE: I met with the patient in the evening. The patient isolates in his room, somewhat withdrawn, except at lunchtime, he spent time in his room, compliant with medications. Previous night he was having migraine headaches, received Imitrex, but he slept 7 hours previous night. Remains somewhat depressed. REVIEW OF SYSTEMS: Impaired interaction. No CV, , pulmonary system symptoms on review, does complain of some tiredness. MENTAL STATUS EXAM: Reasonably oriented. Speech moderate latency, often responses monosyllabic, coherent. Abstraction fair, computation impaired, language function intact. Mood and affect somewhat withdrawn. LABORATORY DATA: Reviewed. IMPRESSION: Unchanged from initial note. PLAN: Increase Zoloft from 50 mg a day to 75 mg a day. Rest unchanged. MAN Svetlana CRAFT MD DR: SUNIL/mikhail JOB#: [id number] / [id number]
[2018-08-18] MEDS: hydrOXYzine HCL 25 MG TABLET PO PRN (19:59)
--- NOTE | 2018-08-18 20:00 | PN ---
DATE: 08/17/2018 PSYCHIATRIC PROGRESS NOTE This late entry 08/17/2018 covers elements not covered in my initial note. SUBJECTIVE: I met with the patient in the evening and staffed at treatment team meeting earlier in the day. The patient slept 4-1/4 hours previous night, 7 hours average, incontinent at times. He was tearful, crying when he was wet on it himself, withdrawn, still depressed. REVIEW OF SYSTEMS: No CV, , pulmonary, eye system symptoms on review. MENTAL STATUS EXAM: Reasonably oriented. Speech moderate latency, often responses monosyllabic. Abstraction fair, computation impaired, language function intact. Mood and affect withdrawn. He always wants me to shut the door of his room as I am leaving, isolates. LABORATORY DATA: Reviewed. IMPRESSION: Major depressive disorder, impulse control disorder. PLAN: Continue current psychotropics and add Wellbutrin-XL 150 mg in the morning to help with motivation and to augment the Zoloft 75 mg a day. Rest unchanged. MAN Svetlana CRAFT MD DR: SUNIL/mikhail JOB#: [id number] / [id number]
--- NOTE | 2018-08-18 22:29 | PDOC ---
Exam Note: Darion Note: Please also refer to the separate dictated note~for this date of service dictated separately.~Patient seen individually. Discussed the patient with Nursing staff reviewed the chart.~Reviewed interim history and current functioning. Reviewed vital signs,~Labs/ Radiology~and current medications noted below. Continue current treatment with the changes noted in the dictated addendum note Assessment: Vital Signs: Vital Signs Date Time Temp Pulse Resp B/P (MAP) Pulse Ox O2 Delivery O2 Flow Rate FiO2 08/18/18 19:58 75 107/66 08/18/18 16:16 98.0 18 97 Room Air I&O Intake and Output 08/18/18 06:59 Intake Total 960 ml Balance 960 ml Intake Oral 960 ml Labs: Laboratory Tests Test 08/18/18 06:56 White Blood Count 4.1 x10^3/uL (4.0-11.0) Red Blood Count 4.24 x10^6/uL (4.30-5.70) L Hemoglobin 12.3 g/dL (13.0-17.5) L Hematocrit 36.9 % (39.0-53.0) L Mean Corpuscular Volume 87 fL (79-100) Mean Corpuscular Hemoglobin 29 pg (25-35) Mean Corpuscular Hemoglobin Concent 33 g/dL (31-37) Red Cell Distribution Width 14.5 % (11.5-14.5) Platelet Count 127 x10^3/uL (140-400) L Neutrophils (%) (Auto) 52 % (31-73) Lymphocytes (%) (Auto) 27 % (24-48) Monocytes (%) (Auto) 14 % (0-9) H Eosinophils (%) (Auto) 6 % (0-3) H Basophils (%) (Auto) 1 % (0-3) Neutrophils # (Auto) 2.1 x10^3uL (1.8-7.7) Lymphocytes # (Auto) 1.1 x10^3/uL (1.0-4.8) Monocytes # (Auto) 0.6 x10^3/uL (0.0-1.1) Eosinophils # (Auto) 0.2 x10^3/uL (0.0-0.7) Basophils # (Auto) 0.0 x10^3/uL (0.0-0.2) Sodium Level 141 mmol/L (136-145) Potassium Level 4.2 mmol/L (3.5-5.1) Chloride Level 104 mmol/L (98-107) Carbon Dioxide Level 27 mmol/L (21-32) Anion Gap 10 (6-14) Blood Urea Nitrogen 20 mg/dL (8-26) Creatinine 0.7 mg/dL (0.7-1.3) Estimated GFR (Cockcroft-Gault) 117.5 BUN/Creatinine Ratio 29 (6-20) H Glucose Level 87 mg/dL (70-99) Calcium Level 8.5 mg/dL (8.5-10.1) Total Bilirubin 0.5 mg/dL (0.2-1.0) Aspartate Amino Transferase (AST) 15 U/L (15-37) Alanine Aminotransferase (ALT) 14 U/L (16-63) L Alkaline Phosphatase 68 U/L (46-116) Total Protein 6.3 g/dL (6.4-8.2) L Albumin 3.3 g/dL (3.4-5.0) L Albumin/Globulin Ratio 1.1 (1.0-1.7) Current Medications: Meds: Current Medications Acetaminophen (Tylenol) 650 mg PRN Q6HRS PRN PO PAIN / TEMP Last administered on 08/18/18at 02:26; Start 08/12/18 at 01:00 Multi-Ingredient Ointment (Analgesic [place]) 1 siobhan PRN QID PRN TP MUSCLE PAIN; Start 08/12/18 at 01:00 Al Hydroxide/Mg Hydroxide (Mylanta Plus Xs) 15 ml PRN AFTMEALHC PRN PO DYSPEPSIA; Start 08/12/18 at 01:00 Magnesium Hydroxide (Milk Of Magnesia) 2,400 mg PRN QHS PRN PO CONSTIPATION; Start 08/12/18 at 01:00 Albuterol Sulfate (Ventolin) 2.5 mg PRN Q4HRS PRN IH WHEEZING; Start 08/12/18 at 07:00 Lorazepam (Ativan) 1 mg PRN Q6HRS PRN PO ANXIETY / AGITATION Last administered on 08/18/18at 02:26; Start 08/12/18 at 07:00 Nitroglycerin (Nitrostat) 0.4 mg PRN Q5MIN PRN SL CHEST PAIN; Start 08/12/18 at 07:00 Baclofen (Lioresal) 25 mg QID PO Last administered on 08/18/18 19:57; Start 08/12/18 at 09:00 Citalopram Hydrobromide (CeleXA) 40 mg DAILY PO Last administered on 08/15/18 08:29; Start 08/12/18 at 09:00; Stop 08/16/18 at 09:47; Status DC Pantoprazole Sodium (Protonix) 40 mg DAILYAC PO Last administered on 08/18/18 07:52; Start 08/12/18 at 07:30 Fentanyl (Duragesic 75mcg/ Hr) 1 patch Q3DAYS TD Last administered on 08/18/18 08:37; Start 08/12/18 at 09:00 Hydromorphone HCl (Dilaudid) 8 mg PRN Q4HRS PRN PO PAIN; Start 08/12/18 at 07:30 Cetirizine HCl (ZyrTEC) 10 mg PRN DAILY PRN PO ALLERGIES; Start 08/12/18 at 09: 00 Sumatriptan Succinate (Imitrex) 100 mg PRN DAILY PRN PO MIGRAINE HEADACHE Last administered on 08/15/18 23:16; Start 08/12/18 at 07:30 Terazosin HCl (Hytrin) 10 mg QHS PO Last administered on 08/18/18 19:58; Start 08/12/18 at 21:00 Zolpidem Tartrate (Ambien) 5 mg HS PO Last administered on 08/18/18 19:57; Start 08/12/18 at 21:00 Zolpidem Tartrate (Ambien) 5 mg PRN QHS PRN PO INSOMNIA, MR X1 WITHIN 2 HRS Last administered on 08/17/18 23:14; Start 08/12/18 at 07:30 Sertraline HCl (Zoloft) 50 mg DAILY PO Last administered on 08/16/18 09:40; Start 08/13/18 at 09:00; Stop 08/16/18 at 16:48; Status DC Sertraline HCl (Zoloft) 75 mg DAILY PO Last administered on 08/18/18 07:53; Start 08/17/18 at 09:00 Zolpidem Tartrate (Ambien) 5 mg 1X ONCE PO Last administered on 08/16/18 23:45 ; Start 08/16/18 at 23:45; Stop 08/16/18 at 23:46; Status DC Bupropion HCl (Wellbutrin Xl) 150 mg DAILY PO Last administered on 08/18/18 07: 55; Start 08/18/18 at 09:00 Hydroxyzine HCl (Atarax) 25 mg PRN QHS PRN PO INSOMNIA, MAY REPEAT X1 Last administered on 08/18/18at 19:59; Start 08/18/18 at 19:30 Active Scripts Active Reported FENTANYL 75mcg/hr (Fentanyl) 1 Each Patch.td72 1 Patch TD Q72H NITROGLYCERIN SubLingual (Nitroglycerin) 0.4 Mg Tab.subl 0.4 Mg SL PRN Q5MIN PRN Hydromorphone Hcl 4 Mg Tablet 8 Mg PO PRN Q4HRS PRN Baclofen 10 Mg Tablet 25 Mg PO QID Ventolin Hfa Inhaler (Albuterol Sulfate) 18 Gm Hfa.aer.ad 2 Puff IH PRN Q4HRS PRN Ativan (Lorazepam) 1 Mg Tablet 1 Mg PO PRN Q6HRS PRN Maxalt (Rizatriptan Benzoate) 10 Mg Tablet 10 Mg PO PRN DAILY PRN Loratadine 10 Mg Tablet 10 Mg PO PRN DAILY PRN Nexium Capsule (Esomeprazole Magnesium) 20 Mg Capsule.dr 20 Mg PO DAILYAC Citalopram Hbr (Citalopram Hydrobromide) 40 Mg Tablet 40 Mg PO DAILY Ambien (Zolpidem Tartrate) 10 Mg Tablet 10 Mg PO HS Terazosin Hcl 10 Mg Capsule 10 Mg PO HS I have reviewed the current psychotropics carefully including drug interactions. Risk benefit ratio favors no change other than as noted in my dictated progress note. Diagnosis: Problems: (1) Anxiety disorder (2) Major depressive disorder, recurrent episode (3) Impulse control disorder KENN CRAFT MD Aug 18, 2018 22:28
[2018-08-18] MEDS: ZOLPIDEM 5 MG TABLET. PO PRN (22:46)
[2018-08-19] MEDS: HYDROmorphone 2 MG TABLET PO PRN (01:18)
[2018-08-19 05:45] VITALS: BP 105/56
[2018-08-19] MEDS: buPROPion XL 150 MG TAB.ER.24H PO SCH (07:35)
[2018-08-19] MEDS: PANTOPRAZOLE 40 MG TABLET. PO SCH (07:35)
[2018-08-19] MEDS: SERTRALINE 50 MG TABLET. PO SCH (07:35)
[2018-08-19] MEDS: BACLOFEN 10 MG TABLET PO SCH ×4 (07:35→19:29)
[2018-08-19 15:50] VITALS: BP 108/62
[2018-08-19] MEDS: TERAZOSIN 5 MG CAPSULE. PO SCH (19:29)
[2018-08-19] MEDS: ZOLPIDEM 5 MG TABLET. PO SCH (19:30)
[2018-08-19] MEDS: hydrOXYzine HCL 25 MG TABLET PO PRN ×2 (19:30→22:43)
--- NOTE | 2018-08-19 22:42 | PN ---
DATE: 08/19/2018 SUBJECTIVE: The patient was seen today, met with the staff, chart reviewed. The patient complains of not able to sleep. Apparently, he had problems with chronic insomnia. The patient was much calmer. Staff reports no major behavior problems. OBSERVATION: VITAL SIGNS: Temperature 97.4, blood pressure 105/56, pulse 83, respirations 18, O2 sat 96%. GENERAL: Slept only about 2 hours last night. The patient's appetite is fair. PSYCHIATRIC: The patient states he likes to be left alone then admits to feeling depressed, also irritable, and gillette at times. MEDICATIONS: The patient's current medications include bupropion 150 mg daily, Zoloft 75 mg daily, Ambien 5 mg at night, Hytrin 10 mg at night, fentanyl patch 75 mcg q. 3 days, baclofen 25 mg q.i.d., Imitrex 100 mg p.r.n. daily for migraine headaches, and lorazepam 1 mg q. 6 hours p.r.n. The patient is not having any side effects to the medications. LABORATORY DATA: The patient's lab reviewed, no significant change from the previous level. ASSESSMENT: 1. Major depressive disorder, recurrent. 2. Generalized anxiety disorder. Continue with the current treatment plan. NAYLA MA MD DR: NADIRA/mikhail JOB#: [id number] / [id number]
[2018-08-19] MEDS: ZOLPIDEM 5 MG TABLET. PO PRN (22:43)
[2018-08-20] MEDS: HYDROmorphone 2 MG TABLET PO PRN ×3 (05:20→18:27)
[2018-08-20 06:05] VITALS: BP 110/71
[2018-08-20] MEDS: PANTOPRAZOLE 40 MG TABLET. PO SCH (07:57)
[2018-08-20] MEDS: buPROPion XL 150 MG TAB.ER.24H PO SCH (07:57)
[2018-08-20] MEDS: BACLOFEN 10 MG TABLET PO SCH ×4 (07:58→20:00)
[2018-08-20] MEDS: SERTRALINE 50 MG TABLET. PO SCH (07:58)
[2018-08-20 16:10] VITALS: BP 129/71
[2018-08-20] MEDS: ZOLPIDEM 5 MG TABLET. PO SCH (19:59)
[2018-08-20] MEDS: TERAZOSIN 5 MG CAPSULE. PO SCH (20:00)
[2018-08-20] MEDS: ZOLPIDEM 5 MG TABLET. PO PRN (22:38)
--- NOTE | 2018-08-20 22:58 | PN ---
DATE: 08/18/2018 PSYCHIATRIC PROGRESS NOTE This late entry 08/18/2018 covers elements not covered in my initial note. SUBJECTIVE: I met with the patient in the evening. The patient has been resistive with the bedtime medications, agitated, was spitting staff per nursing reports. Compliant with medications. did get her breakfast. REVIEW OF SYSTEMS: I met with him in his room. Ambulation impaired. No CV, , pulmonary, eye, ENT system symptoms on review. At the end of my visit, he was insistent that I locked the door behind him. MENTAL STATUS EXAM: Reasonably oriented. Speech has some latency, coherent. Abstraction fair, computation impaired, language function intact, attention span short. Mood and affect, somewhat depressed, anxious. No suicidal or homicidal ideation. LABORATORY DATA: Reviewed. IMPRESSION: Unchanged from initial note. PLAN: Start trazodone 50 mg at bedtime p.r.n. insomnia, may repeat x 1. Rest unchanged from initial note. MAN Svetlana CRAFT MD DR: SUNIL/mikhail JOB#: [id number] / [id number]
[2018-08-21] MEDS: HYDROmorphone 2 MG TABLET PO PRN ×4 (00:26→23:38)
--- NOTE | 2018-08-21 01:44 | PN ---
DATE: 08/20/2018 SUBJECTIVE: The patient was seen today, met with the staff, chart reviewed. Staff reports no major problems except he is not sleeping well. OBSERVATION: Vital signs stable. Appetite fair. Sleep decreased. The patient is compliant with medications. Currently on bupropion 150 mg daily, Zoloft 75 mg daily, Ambien 5 mg at night, Hytrin 10 mg at night. He is also on fentanyl patch, baclofen, and lorazepam. The patient is not having any side effects. ASSESSMENT: 1. Major depressive disorder, recurrent. 2. Generalized anxiety disorder. PLAN: To continue the treatment. NAYLA MA MD DR: NADIRA/mikhail JOB#: [id number] / [id number]
[2018-08-21 06:02] VITALS: BP 98/63
[2018-08-21] MEDS: buPROPion XL 150 MG TAB.ER.24H PO SCH (08:34)
[2018-08-21] MEDS: SERTRALINE 50 MG TABLET. PO SCH (08:35)
[2018-08-21] MEDS: fentaNYL 75MCG/HR 1 PATCH PATCH TD SCH (08:35)
[2018-08-21] MEDS: PANTOPRAZOLE 40 MG TABLET. PO SCH (08:35)
[2018-08-21] MEDS: BACLOFEN 10 MG TABLET PO SCH ×4 (08:35→20:06)
[2018-08-21 16:20] VITALS: BP 111/77
[2018-08-21] MEDS: TERAZOSIN 5 MG CAPSULE. PO SCH (20:05)
[2018-08-21] MEDS: ZOLPIDEM 5 MG TABLET. PO SCH (20:07)
[2018-08-21] MEDS: hydrOXYzine HCL 25 MG TABLET PO PRN ×2 (20:07→22:31)
[2018-08-21] MEDS: ZOLPIDEM 5 MG TABLET. PO PRN (22:31)
--- NOTE | 2018-08-22 02:28 | PN ---
DATE: 08/21/2018 SUBJECTIVE: The patient was seen today, met with the staff, chart reviewed. The patient is constantly complaining about pain seeking medication for pain constantly. He is also isolating himself, likes to be left alone, also feeling depressed. OBJECTIVE: VITAL SIGNS: Temperature 98, blood pressure 98/63, pulse 81, respirations 16, O2 sat 100%. Slept about 4 hours last night. CURRENT MEDICATIONS: The patient's current medications include bupropion 150 mg daily, Zoloft 75 mg daily, Ambien 5 mg at night, Hytrin 10 mg at night. The patient is also on fentanyl patch, baclofen, lorazepam. The patient denies of any side effects. ASSESSMENT: 1. Major depressive disorder, recurrent. 2. Generalized anxiety disorder. PLAN: Continue with the treatment. The patient is planned for discharge at the end of week if continues to show improvement. NAYLA MA MD DR: NADIRA/mikhali JOB#: [id number] / [id number]
[2018-08-22 06:22] VITALS: BP 92/62
[2018-08-22] MEDS: buPROPion XL 150 MG TAB.ER.24H PO SCH (09:00)
[2018-08-22] MEDS: PANTOPRAZOLE 40 MG TABLET. PO SCH (09:38)
[2018-08-22] MEDS: BACLOFEN 10 MG TABLET PO SCH ×4 (09:38→21:12)
[2018-08-22] MEDS: SERTRALINE 50 MG TABLET. PO SCH (09:38)
[2018-08-22] MEDS: HYDROmorphone 2 MG TABLET PO PRN ×2 (12:43→22:18)
[2018-08-22 16:09] VITALS: BP 108/72
[2018-08-22] MEDS: TERAZOSIN 5 MG CAPSULE. PO SCH (21:11)
[2018-08-22] MEDS: ZOLPIDEM 5 MG TABLET. PO SCH (21:12)
--- NOTE | 2018-08-23 01:25 | PN ---
DATE: 08/22/2018 SUBJECTIVE: The patient was seen today, met with the staff, chart reviewed. The patient's behavior remains the same, complaining of pain, isolating himself, staying in bed most of the time. The patient is also irritable and gillette. OBJECTIVE: VITAL SIGNS: Temperature 98.8, blood pressure 108/72, pulse 90, respirations 20, O2 sat 95%. MEDICATIONS: The patient's current medications include bupropion 150 mg daily, Zoloft 75 mg daily, Ambien 5 mg at night, Hytrin 5 mg at night. The patient is not having any major side effects. ASSESSMENT: 1. Major depressive disorder, recurrent. 2. Generalized anxiety disorder. PLAN: To continue with the treatment. NAYLA MA MD DR: NADIRA/mikhail JOB#: [id number] / [id number]
[2018-08-23] MEDS: PANTOPRAZOLE 40 MG TABLET. PO SCH (08:16)
[2018-08-23] MEDS: SERTRALINE 50 MG TABLET. PO SCH (08:16)
[2018-08-23] MEDS: BACLOFEN 10 MG TABLET PO SCH ×4 (08:16→20:04)
[2018-08-23] MEDS: buPROPion XL 150 MG TAB.ER.24H PO SCH (08:16)
[2018-08-23 09:00] VITALS: BP 108/72
[2018-08-23 17:10] VITALS: BP 114/72
[2018-08-23] MEDS: HYDROmorphone 2 MG TABLET PO PRN (17:53)
[2018-08-23] MEDS: ZOLPIDEM 5 MG TABLET. PO SCH (20:03)
[2018-08-23] MEDS: TERAZOSIN 5 MG CAPSULE. PO SCH (20:04)
[2018-08-23] MEDS: ZOLPIDEM 5 MG TABLET. PO PRN (22:16)
[2018-08-24] MEDS: SERTRALINE 50 MG TABLET. PO SCH (08:15)
[2018-08-24] MEDS: BACLOFEN 10 MG TABLET PO SCH ×4 (08:16→19:55)
[2018-08-24] MEDS: PANTOPRAZOLE 40 MG TABLET. PO SCH (08:16)
[2018-08-24] MEDS: buPROPion XL 150 MG TAB.ER.24H PO SCH (08:16)
[2018-08-24] MEDS: fentaNYL 75MCG/HR 1 PATCH PATCH TD SCH (08:18)
[2018-08-24] MEDS: HYDROmorphone 2 MG TABLET PO PRN ×2 (08:19→18:36)
[2018-08-24 08:30] VITALS: BP 114/72
[2018-08-24 16:27] VITALS: BP 115/68
[2018-08-24] MEDS: TERAZOSIN 5 MG CAPSULE. PO SCH (19:56)
[2018-08-24] MEDS: ZOLPIDEM 5 MG TABLET. PO SCH (19:56)
[2018-08-24] MEDS: ZOLPIDEM 5 MG TABLET. PO PRN (22:12)
--- NOTE | 2018-08-24 23:44 | PN ---
DATE: 08/24/2018 SUBJECTIVE: The patient was seen today, met with the staff, chart reviewed. The patient continues to isolate himself, stays in his room, continues to be irritable and gillette. OBSERVATION: VITAL SIGNS: Temperature 97.5, blood pressure 115/68, pulse 85, respirations 17, O2 sat 96%. GENERAL: Sleep increased, appetite is fair. MEDICATIONS: The patient's current medications include bupropion 150 mg daily, Zoloft 75 mg daily, Ambien 5 mg at night. The patient is not having any side effects to medications. ASSESSMENT: 1. Major depressive disorder, recurrent. 2. Generalized anxiety disorder. PLAN: To continue with the treatment. NAYLA MA MD DR: NADIRA/mikhail JOB#: [id number] / [id number]
[2018-08-25] MEDS ORDERED: ACET325T9 PO (00:07)
[2018-08-25] MEDS ORDERED: ALBU2.5V14 NEB (00:09)
[2018-08-25] MEDS ORDERED: CETI10TA22 PO (00:10)
[2018-08-25] MEDS ORDERED: MAG30ORA2 PO (00:12)
[2018-08-25] MEDS ORDERED: MAGN2400 PO (00:12)
[2018-08-25] MEDS ORDERED: METH29OI TP (00:13)
[2018-08-25] MEDS ORDERED: PANT40TA5 PO (00:16)
[2018-08-25] MEDS ORDERED: SERT25TA PO (00:17)
[2018-08-25] MEDS ORDERED: SERT50TA PO (00:17)
[2018-08-25] MEDS ORDERED: SUMA100T3 PO (00:18)
[2018-08-25] MEDS ORDERED: ZOLP5TAB PO ×2 (00:19→00:20)
[2018-08-25] MEDS ORDERED: BUPR150T15 PO (00:22)
[2018-08-25] MEDS ORDERED: HYDR25TA PO (00:23)
[2018-08-25 06:00] VITALS: BP 112/75
[2018-08-25] MEDS: BACLOFEN 10 MG TABLET PO SCH ×4 (07:50→19:29)
[2018-08-25] MEDS: SERTRALINE 50 MG TABLET. PO SCH (07:50)
[2018-08-25] MEDS: PANTOPRAZOLE 40 MG TABLET. PO SCH (07:50)
[2018-08-25] MEDS: buPROPion XL 150 MG TAB.ER.24H PO SCH (07:51)
[2018-08-25 16:14] VITALS: BP 121/78
[2018-08-25] MEDS: ZOLPIDEM 5 MG TABLET. PO SCH (19:28)
[2018-08-25] MEDS: TERAZOSIN 5 MG CAPSULE. PO SCH (19:29)
[2018-08-25] MEDS: ZOLPIDEM 5 MG TABLET. PO PRN (20:49)
[2018-08-25] MEDS: HYDROmorphone 2 MG TABLET PO PRN (22:45)
--- NOTE | 2018-08-25 23:07 | PN ---
DATE: 08/25/2018 SUBJECTIVE: The patient was seen today, met with the staff, chart reviewed. The patient continues to isolate himself, stays in his room, having mood swings, irritability. OBSERVATION: VITAL SIGNS: Temperature 97.1, blood pressure 112/75, pulse 86, respirations 18, O2 sat 95%. Slept about 3-1/2 hours last night. The patient's behavior fluctuates. MEDICATIONS: The patient's current medications include bupropion 150 mg daily, Zoloft 75 mg daily, Ambien 5 mg at night. The patient is not having any side effects to the medications. ASSESSMENT: 1. Major depressive disorder, recurrent. 2. Generalized anxiety disorder. PLAN: To continue with the treatment. NAYLA MA MD DR: NADIRA/mikhail JOB#: [id number] / [id number]
[2018-08-26 05:51] VITALS: BP 98/63
[2018-08-26] MEDS: SERTRALINE 50 MG TABLET. PO SCH (07:33)
[2018-08-26] MEDS: BACLOFEN 10 MG TABLET PO SCH ×4 (07:33→19:36)
[2018-08-26] MEDS: PANTOPRAZOLE 40 MG TABLET. PO SCH (07:33)
[2018-08-26] MEDS: buPROPion XL 150 MG TAB.ER.24H PO SCH (07:33)
[2018-08-26 08:25] LABS: BASO % 1 % (0-3); EOS # 0.1 x10^3/uL (0.0-0.7); EOS % 4 % (0-3); HEMATOCRIT 38.7 % (39.0-53.0); HEMOGLOBIN 12.8 g/dL (13.0-17.5); LYMPH # 0.7 x10^3/uL (1.0-4.8); LYMPH % 18 % (24-48); MEAN CORPUSCULAR HEMOGLOBIN 29 pg (25-35); MEAN CORPUSCULAR HGB CONC 33 g/dL (31-37); MEAN CORPUSCULAR VOLUME 87 fL (79-100); MONO # 0.5 x10^3/uL (0.0-1.1); MONO % 12 % (0-9); NEUT # 2.6 x10^3uL (1.8-7.7); NEUT % 66 % (31-73); PLATELET COUNT 164 x10^3/uL (140-400); RED BLOOD COUNT 4.43 x10^6/uL (4.30-5.70); RED CELL DISTRIBUTION WIDTH 14.1 % (11.5-14.5)
[2018-08-26 08:52] LABS: ALBUMIN 3.5 g/dL (3.4-5.0); ALBUMIN/GLOBULIN RATIO 0.9 (1.0-1.7); GFR 77.9; POTASSIUM 4.4 mmol/L (3.5-5.1); TOTAL BILIRUBIN 0.6 mg/dL (0.2-1.0); TOTAL PROTEIN 7.4 g/dL (6.4-8.2)
[2018-08-26 16:21] VITALS: BP 132/74
--- NOTE | 2018-08-26 17:07 | PN ---
DATE: 08/26/2018 SUBJECTIVE: The patient was seen today, met with the staff, chart reviewed. The patient continues to have mood swings, tend to isolate himself, and tend to be irritable and gillette. OBSERVATION: VITAL SIGNS: Temperature 96.8, blood pressure 98/63, respirations 18, pulse 80, O2 sat 96%. Slept about 6 hours last night. The patient is not having any side effects. The patient did not have any falls. MEDICATIONS: The patient's current medications include bupropion 150 mg daily, Zoloft 75 mg daily, Ambien 5 mg at night. ASSESSMENT: 1. Major depressive disorder, recurrent. 2. Generalized anxiety disorder. PLAN: Continue with the treatment. NAYLA MA MD DR: NADIRA/mikhail JOB#: [id number] / [id number]
[2018-08-26] MEDS: ZOLPIDEM 5 MG TABLET. PO SCH (19:35)
[2018-08-26] MEDS: TERAZOSIN 5 MG CAPSULE. PO SCH (19:36)
[2018-08-26] MEDS: ZOLPIDEM 5 MG TABLET. PO PRN (21:47)
[2018-08-27 05:22] VITALS: BP 132/79
[2018-08-27] MEDS: PANTOPRAZOLE 40 MG TABLET. PO SCH (07:36)
[2018-08-27] MEDS: SERTRALINE 50 MG TABLET. PO SCH (07:36)
[2018-08-27] MEDS: buPROPion XL 150 MG TAB.ER.24H PO SCH (07:37)
[2018-08-27] MEDS: BACLOFEN 10 MG TABLET PO SCH ×4 (07:37→21:05)
[2018-08-27] MEDS: fentaNYL 75MCG/HR 1 PATCH PATCH TD SCH (07:39)
[2018-08-27 15:46] VITALS: BP 106/66
[2018-08-27] MEDS: ZOLPIDEM 5 MG TABLET. PO SCH (21:03)
[2018-08-27] MEDS: TERAZOSIN 5 MG CAPSULE. PO SCH (21:06)
[2018-08-27] MEDS: ZOLPIDEM 5 MG TABLET. PO PRN (22:15)
--- NOTE | 2018-08-27 22:37 | PDOC ---
Exam Note: Darion Note: Please also refer to the separate dictated note~for this date of service dictated separately.~Patient seen individually. Discussed the patient with Nursing staff reviewed the chart.~Reviewed interim history and current functioning. Reviewed vital signs,~Labs/ Radiology~and current medications noted below. Continue current treatment with the changes noted in the dictated addendum note Assessment: Vital Signs: Vital Signs Date Time Temp Pulse Resp B/P (MAP) Pulse Ox O2 Delivery O2 Flow Rate FiO2 08/27/18 21:06 91 106/68 08/27/18 15:46 98.4 20 97 Room Air I&O Intake and Output 08/27/18 07:00 Intake Total 1080 ml Balance 1080 ml Intake Oral 1080 ml Current Medications: Meds: Current Medications Acetaminophen (Tylenol) 650 mg PRN Q6HRS PRN PO PAIN / TEMP Last administered on 08/18/18at 02:26; Start 08/12/18 at 01:00 Multi-Ingredient Ointment (Analgesic [place]) 1 shayan PRN QID PRN TP MUSCLE PAIN; Start 08/12/18 at 01:00 Al Hydroxide/Mg Hydroxide (Mylanta Plus Xs) 15 ml PRN AFTMEALHC PRN PO DYSPEPSIA; Start 08/12/18 at 01:00 Magnesium Hydroxide (Milk Of Magnesia) 2,400 mg PRN QHS PRN PO CONSTIPATION Last administered on 08/21/18at 08:51; Start 08/12/18 at 01:00 Albuterol Sulfate (Ventolin) 2.5 mg PRN Q4HRS PRN IH WHEEZING; Start 08/12/18 at 07:00 Lorazepam (Ativan) 1 mg PRN Q6HRS PRN PO ANXIETY / AGITATION Last administered on 08/18/18at 02:26; Start 08/12/18 at 07:00 Nitroglycerin (Nitrostat) 0.4 mg PRN Q5MIN PRN SL CHEST PAIN; Start 08/12/18 at 07:00 Baclofen (Lioresal) 25 mg QID PO Last administered on 08/27/18at 21:05; Start at 09:00 Citalopram Hydrobromide (CeleXA) 40 mg DAILY PO Last administered on 08/15/18at 08:29; Start 08/12/18 at 09:00; Stop 08/16/18 at 09:47; Status DC Pantoprazole Sodium (Protonix) 40 mg DAILYAC PO Last administered on 08/27/18 07:36; Start 08/12/18 at 07:30 Fentanyl (Duragesic 75mcg/ Hr) 1 patch Q3DAYS TD Last administered on 07:39; Start 08/12/18 at 09:00 Hydromorphone HCl (Dilaudid) 8 mg PRN Q4HRS PRN PO PAIN Last administered on 22:45; Start 08/12/18 at 07:30 Cetirizine HCl (ZyrTEC) 10 mg PRN DAILY PRN PO ALLERGIES; Start 08/12/18 at 09: 00 Sumatriptan Succinate (Imitrex) 100 mg PRN DAILY PRN PO MIGRAINE HEADACHE Last administered on 08/15/18 23:16; Start 08/12/18 at 07:30 Terazosin HCl (Hytrin) 10 mg QHS PO Last administered on 08/27/18 21:06; Start 08/12/18 at 21:00 Zolpidem Tartrate (Ambien) 5 mg HS PO Last administered on 08/27/18 21:03; Start 08/12/18 at 21:00 Zolpidem Tartrate (Ambien) 5 mg PRN QHS PRN PO INSOMNIA, MR X1 WITHIN 2 HRS Last administered on 08/27/18 22:15; Start 08/12/18 at 07:30 Sertraline HCl (Zoloft) 50 mg DAILY PO Last administered on 08/16/18 09:40; Start 08/13/18 at 09:00; Stop 08/16/18 at 16:48; Status DC Sertraline HCl (Zoloft) 75 mg DAILY PO Last administered on 08/27/18 07:36; Start 08/17/18 at 09:00 Zolpidem Tartrate (Ambien) 5 mg 1X ONCE PO Last administered on 08/16/18 23:45 ; Start 08/16/18 at 23:45; Stop 08/16/18 at 23:46; Status DC Bupropion HCl (Wellbutrin Xl) 150 mg DAILY PO Last administered on 08/27/18 07 :37; Start 08/18/18 at 09:00 Hydroxyzine HCl (Atarax) 25 mg PRN QHS PRN PO INSOMNIA, MAY REPEAT X1 Last administered on 08/21/18at 22:31; Start 08/18/18 at 19:30 Active Scripts Active Reported Hydroxyzine Hcl 25 Mg Tablet 25 Mg PO PRN QHS PRN Wellbutrin Xl (Bupropion Hcl) 150 Mg Tab.er.24h 150 Mg PO DAILY Ambien (Zolpidem Tartrate) 5 Mg Tablet 5 Mg PO QHS Ambien (Zolpidem Tartrate) 5 Mg Tablet 5 Mg PO PRN QHS Imitrex (Sumatriptan Succinate) 100 Mg Tablet 100 Mg PO PRN DAILY PRN Zoloft (Sertraline Hcl) 50 Mg Tablet 50 Mg PO DAILY Zoloft (Sertraline Hcl) 25 Mg Tablet 75 Mg PO DAILY Pantoprazole Sodium 40 Mg Tablet.dr 40 Mg PO DAILYAC Analgesic [place] (Methyl Salicylate/Menthol) 28 Gm Oint...g. 1 Shayan TP PRN QID PRN Milk Of Magnesia (Magnesium Hydroxide) 2,400 Mg/10 Ml Oral.susp 2,400 Mg PO PRN QHS PRN Mag-Al Plus Xs Suspension (Mag Hydrox/Al Hydrox/Simeth) 30 Ml Oral.susp 15 Ml PO PRN AFTMEALHC PRN Zyrtec (Cetirizine Hcl) 10 Mg Tablet 10 Mg PO DAILY Albuterol Sulfate Conc Neb Soln (Albuterol Sulfate) 2.5 Mg/0.5 Ml Vial.neb 2.5 Mg NEB PRN Q4HRS PRN Tylenol (Acetaminophen) 325 Mg Tablet 650 Mg PO PRN Q6HRS PRN FENTANYL 75mcg/hr (Fentanyl) 1 Each Patch.td72 1 Patch TD Q72H NITROGLYCERIN SubLingual (Nitroglycerin) 0.4 Mg Tab.subl 0.4 Mg SL PRN Q5MIN PRN Hydromorphone Hcl 4 Mg Tablet 8 Mg PO PRN Q4HRS PRN Baclofen 10 Mg Tablet 25 Mg PO QID Ventolin Hfa Inhaler (Albuterol Sulfate) 18 Gm Hfa.aer.ad 2 Puff IH PRN Q4HRS PRN Ativan (Lorazepam) 1 Mg Tablet 1 Mg PO PRN Q6HRS PRN Maxalt (Rizatriptan Benzoate) 10 Mg Tablet 10 Mg PO PRN DAILY PRN Loratadine 10 Mg Tablet 10 Mg PO PRN DAILY PRN Nexium Capsule (Esomeprazole Magnesium) 20 Mg Capsule.dr 20 Mg PO DAILYAC Citalopram Hbr (Citalopram Hydrobromide) 40 Mg Tablet 40 Mg PO DAILY Ambien (Zolpidem Tartrate) 10 Mg Tablet 10 Mg PO HS Terazosin Hcl 10 Mg Capsule 10 Mg PO HS I have reviewed the current psychotropics carefully including drug interactions. Risk benefit ratio favors no change other than as noted in my dictated progress note. Diagnosis: Problems: (1) Anxiety disorder (2) Major depressive disorder, recurrent episode (3) Impulse control disorder KENN CRAFT MD Aug 27, 2018 22:37
--- NOTE | 2018-08-27 23:32 | PN ---
DATE: 08/27/2018 SUBJECTIVE: The patient was seen today, met with the staff, chart reviewed. The patient stays in bed most of the time. The patient admits to feeling depressed and also irritable and gillette. OBSERVATION: VITAL SIGNS: Temperature 97.7, blood pressure 132/70, and respirations 20, ____, O2 sat 99%. Slept about 5 hours last night. MEDICATIONS: The patient's current medications include bupropion 150 mg daily, Zoloft 75 mg daily, and Ambien 5 mg at night. ASSESSMENT: 1. Major depressive disorder, recurrent. 2. Generalized anxiety disorder. PLAN: To continue with the treatment. The patient is awaiting for placement. NAYLA MA MD DR: NADIRA/mikhail JOB#: [id number] / [id number]
[2018-08-28 06:28] VITALS: BP 116/76
[2018-08-28] MEDS: PANTOPRAZOLE 40 MG TABLET. PO SCH (07:54)
[2018-08-28] MEDS: BACLOFEN 10 MG TABLET PO SCH ×4 (07:55→20:14)
[2018-08-28] MEDS: SERTRALINE 50 MG TABLET. PO SCH (07:55)
[2018-08-28] MEDS: buPROPion XL 150 MG TAB.ER.24H PO SCH (07:55)
[2018-08-28 17:38] VITALS: BP 122/78
[2018-08-28] MEDS: TERAZOSIN 5 MG CAPSULE. PO SCH (20:13)
[2018-08-28] MEDS: ZOLPIDEM 5 MG TABLET. PO SCH (20:15)
[2018-08-28] MEDS: ZOLPIDEM 5 MG TABLET. PO PRN (21:49)
--- NOTE | 2018-08-28 22:15 | PDOC ---
Exam Note: Darion Note: "This is a late entry for 08/27/18. The template note for 08/27/18 was completed in error and should be disregarded." Please also refer to the separate dictated note~for this date of service dictated separately.~Patient seen individually. Discussed the patient with Nursing staff reviewed the chart.~ Reviewed interim history and current functioning. Reviewed vital signs,~Labs/ Radiology~and current medications noted below. Continue current treatment with the changes noted in the dictated addendum note Assessment: Vital Signs: Vital Signs Date Time Temp Pulse Resp B/P (MAP) Pulse Ox O2 Delivery O2 Flow Rate FiO2 08/28/18 20:13 88 122/78 08/28/18 17:38 98.6 16 96 08/27/18 15:46 Room Air I&O Intake and Output 08/28/18 06:59 Intake Total 1060 ml Balance 1060 ml Intake Oral 1060 ml Current Medications: Meds: Current Medications Acetaminophen (Tylenol) 650 mg PRN Q6HRS PRN PO PAIN / TEMP Last administered on 08/18/18at 02:26; Start 08/12/18 at 01:00 Multi-Ingredient Ointment (Analgesic [place]) 1 sahyan PRN QID PRN TP MUSCLE PAIN; Start 08/12/18 at 01:00 Al Hydroxide/Mg Hydroxide (Mylanta Plus Xs) 15 ml PRN AFTMEALHC PRN PO DYSPEPSIA; Start 08/12/18 at 01:00 Magnesium Hydroxide (Milk Of Magnesia) 2,400 mg PRN QHS PRN PO CONSTIPATION Last administered on 08/21/18at 08:51; Start 08/12/18 at 01:00 Albuterol Sulfate (Ventolin) 2.5 mg PRN Q4HRS PRN IH WHEEZING; Start 08/12/18 at 07:00 Lorazepam (Ativan) 1 mg PRN Q6HRS PRN PO ANXIETY / AGITATION Last administered on 08/18/18at 02:26; Start 08/12/18 at 07:00 Nitroglycerin (Nitrostat) 0.4 mg PRN Q5MIN PRN SL CHEST PAIN; Start 08/12/18 at 07:00 Baclofen (Lioresal) 25 mg QID PO Last administered on 08/28/18at 20:14; Start at 09:00 Citalopram Hydrobromide (CeleXA) 40 mg DAILY PO Last administered on 08/15/18 08:29; Start 08/12/18 at 09:00; Stop 08/16/18 at 09:47; Status DC Pantoprazole Sodium (Protonix) 40 mg DAILYAC PO Last administered on 08/28/18 07:54; Start 08/12/18 at 07:30 Fentanyl (Duragesic 75mcg/ Hr) 1 patch Q3DAYS TD Last administered on 07:39; Start 08/12/18 at 09:00 Hydromorphone HCl (Dilaudid) 8 mg PRN Q4HRS PRN PO PAIN Last administered on 22:45; Start 08/12/18 at 07:30 Cetirizine HCl (ZyrTEC) 10 mg PRN DAILY PRN PO ALLERGIES; Start 08/12/18 at 09: 00 Sumatriptan Succinate (Imitrex) 100 mg PRN DAILY PRN PO MIGRAINE HEADACHE Last administered on 08/15/18 23:16; Start 08/12/18 at 07:30 Terazosin HCl (Hytrin) 10 mg QHS PO Last administered on 08/28/18 20:13; Start 08/12/18 at 21:00 Zolpidem Tartrate (Ambien) 5 mg HS PO Last administered on 08/28/18 20:15; Start 08/12/18 at 21:00 Zolpidem Tartrate (Ambien) 5 mg PRN QHS PRN PO INSOMNIA, MR X1 WITHIN 2 HRS Last administered on 08/28/18 21:49; Start 08/12/18 at 07:30 Sertraline HCl (Zoloft) 50 mg DAILY PO Last administered on 08/16/18 09:40; Start 08/13/18 at 09:00; Stop 08/16/18 at 16:48; Status DC Sertraline HCl (Zoloft) 75 mg DAILY PO Last administered on 08/28/18 07:55; Start 08/17/18 at 09:00 Zolpidem Tartrate (Ambien) 5 mg 1X ONCE PO Last administered on 08/16/18 23:45 ; Start 08/16/18 at 23:45; Stop 08/16/18 at 23:46; Status DC Bupropion HCl (Wellbutrin Xl) 150 mg DAILY PO Last administered on 08/28/18at 07 :55; Start 08/18/18 at 09:00 Hydroxyzine HCl (Atarax) 25 mg PRN QHS PRN PO INSOMNIA, MAY REPEAT X1 Last administered on 08/21/18at 22:31; Start 08/18/18 at 19:30 Active Scripts Active Reported Hydroxyzine Hcl 25 Mg Tablet 25 Mg PO PRN QHS PRN Wellbutrin Xl (Bupropion Hcl) 150 Mg Tab.er.24h 150 Mg PO DAILY Ambien (Zolpidem Tartrate) 5 Mg Tablet 5 Mg PO QHS Ambien (Zolpidem Tartrate) 5 Mg Tablet 5 Mg PO PRN QHS Imitrex (Sumatriptan Succinate) 100 Mg Tablet 100 Mg PO PRN DAILY PRN Zoloft (Sertraline Hcl) 50 Mg Tablet 50 Mg PO DAILY Zoloft (Sertraline Hcl) 25 Mg Tablet 75 Mg PO DAILY Pantoprazole Sodium 40 Mg Tablet.dr 40 Mg PO DAILYAC Analgesic [place] (Methyl Salicylate/Menthol) 28 Gm Oint...g. 1 Shayan TP PRN QID PRN Milk Of Magnesia (Magnesium Hydroxide) 2,400 Mg/10 Ml Oral.susp 2,400 Mg PO PRN QHS PRN Mag-Al Plus Xs Suspension (Mag Hydrox/Al Hydrox/Simeth) 30 Ml Oral.susp 15 Ml PO PRN AFTMEALHC PRN Zyrtec (Cetirizine Hcl) 10 Mg Tablet 10 Mg PO DAILY Albuterol Sulfate Conc Neb Soln (Albuterol Sulfate) 2.5 Mg/0.5 Ml Vial.neb 2.5 Mg NEB PRN Q4HRS PRN Tylenol (Acetaminophen) 325 Mg Tablet 650 Mg PO PRN Q6HRS PRN FENTANYL 75mcg/hr (Fentanyl) 1 Each Patch.td72 1 Patch TD Q72H NITROGLYCERIN SubLingual (Nitroglycerin) 0.4 Mg Tab.subl 0.4 Mg SL PRN Q5MIN PRN Hydromorphone Hcl 4 Mg Tablet 8 Mg PO PRN Q4HRS PRN Baclofen 10 Mg Tablet 25 Mg PO QID Ventolin Hfa Inhaler (Albuterol Sulfate) 18 Gm Hfa.aer.ad 2 Puff IH PRN Q4HRS PRN Ativan (Lorazepam) 1 Mg Tablet 1 Mg PO PRN Q6HRS PRN Maxalt (Rizatriptan Benzoate) 10 Mg Tablet 10 Mg PO PRN DAILY PRN Loratadine 10 Mg Tablet 10 Mg PO PRN DAILY PRN Nexium Capsule (Esomeprazole Magnesium) 20 Mg Capsule.dr 20 Mg PO DAILYAC Citalopram Hbr (Citalopram Hydrobromide) 40 Mg Tablet 40 Mg PO DAILY Ambien (Zolpidem Tartrate) 10 Mg Tablet 10 Mg PO HS Terazosin Hcl 10 Mg Capsule 10 Mg PO HS I have reviewed the current psychotropics carefully including drug interactions. Risk benefit ratio favors no change other than as noted in my dictated progress note. Diagnosis: Problems: (1) Anxiety disorder (2) Major depressive disorder, recurrent episode (3) Impulse control disorder KENN CRAFT MD Aug 28, 2018 22:15
--- NOTE | 2018-08-28 23:03 | PDOC ---
Exam Note: Darion Note: Please also refer to the separate dictated note~for this date of service dictated separately.~Patient seen individually. Discussed the patient with Nursing staff reviewed the chart.~Reviewed interim history and current functioning. Reviewed vital signs,~Labs/ Radiology~and current medications noted below. Continue current treatment with the changes noted in the dictated addendum note Assessment: Vital Signs: Vital Signs Date Time Temp Pulse Resp B/P (MAP) Pulse Ox O2 Delivery O2 Flow Rate FiO2 08/28/18 20:13 88 122/78 08/28/18 17:38 98.6 16 96 08/27/18 15:46 Room Air I&O Intake and Output 08/28/18 07:00 Intake Total 1060 ml Balance 1060 ml Intake Oral 1060 ml Current Medications: Meds: Current Medications Acetaminophen (Tylenol) 650 mg PRN Q6HRS PRN PO PAIN / TEMP Last administered on 08/18/18 02:26; Start 08/12/18 at 01:00 Multi-Ingredient Ointment (Analgesic [place]) 1 shayan PRN QID PRN TP MUSCLE PAIN; Start 08/12/18 at 01:00 Al Hydroxide/Mg Hydroxide (Mylanta Plus Xs) 15 ml PRN AFTMEALHC PRN PO DYSPEPSIA; Start 08/12/18 at 01:00 Magnesium Hydroxide (Milk Of Magnesia) 2,400 mg PRN QHS PRN PO CONSTIPATION Last administered on 08/21/18at 08:51; Start 08/12/18 at 01:00 Albuterol Sulfate (Ventolin) 2.5 mg PRN Q4HRS PRN IH WHEEZING; Start 08/12/18 at 07:00 Lorazepam (Ativan) 1 mg PRN Q6HRS PRN PO ANXIETY / AGITATION Last administered on 08/18/18 02:26; Start 08/12/18 at 07:00 Nitroglycerin (Nitrostat) 0.4 mg PRN Q5MIN PRN SL CHEST PAIN; Start 08/12/18 at 07:00 Baclofen (Lioresal) 25 mg QID PO Last administered on 08/28/18at 20:14; Start at 09:00 Citalopram Hydrobromide (CeleXA) 40 mg DAILY PO Last administered on 08/15/18at 08:29; Start 08/12/18 at 09:00; Stop 08/16/18 at 09:47; Status DC Pantoprazole Sodium (Protonix) 40 mg DAILYAC PO Last administered on 08/28/18 07:54; Start 08/12/18 at 07:30 Fentanyl (Duragesic 75mcg/ Hr) 1 patch Q3DAYS TD Last administered on 07:39; Start 08/12/18 at 09:00 Hydromorphone HCl (Dilaudid) 8 mg PRN Q4HRS PRN PO PAIN Last administered on 22:45; Start 08/12/18 at 07:30 Cetirizine HCl (ZyrTEC) 10 mg PRN DAILY PRN PO ALLERGIES; Start 08/12/18 at 09: 00 Sumatriptan Succinate (Imitrex) 100 mg PRN DAILY PRN PO MIGRAINE HEADACHE Last administered on 08/15/18 23:16; Start 08/12/18 at 07:30 Terazosin HCl (Hytrin) 10 mg QHS PO Last administered on 08/28/18 20:13; Start 08/12/18 at 21:00 Zolpidem Tartrate (Ambien) 5 mg HS PO Last administered on 08/28/18 20:15; Start 08/12/18 at 21:00 Zolpidem Tartrate (Ambien) 5 mg PRN QHS PRN PO INSOMNIA, MR X1 WITHIN 2 HRS Last administered on 08/28/18 21:49; Start 08/12/18 at 07:30 Sertraline HCl (Zoloft) 50 mg DAILY PO Last administered on 08/16/18 09:40; Start 08/13/18 at 09:00; Stop 08/16/18 at 16:48; Status DC Sertraline HCl (Zoloft) 75 mg DAILY PO Last administered on 08/28/18 07:55; Start 08/17/18 at 09:00 Zolpidem Tartrate (Ambien) 5 mg 1X ONCE PO Last administered on 08/16/18 23:45 ; Start 08/16/18 at 23:45; Stop 08/16/18 at 23:46; Status DC Bupropion HCl (Wellbutrin Xl) 150 mg DAILY PO Last administered on 3/18/19at 07 :55; Start 08/18/18 at 09:00 Hydroxyzine HCl (Atarax) 25 mg PRN QHS PRN PO INSOMNIA, MAY REPEAT X1 Last administered on 08/21/18at 22:31; Start 08/18/18 at 19:30 Active Scripts Active Reported Hydroxyzine Hcl 25 Mg Tablet 25 Mg PO PRN QHS PRN Wellbutrin Xl (Bupropion Hcl) 150 Mg Tab.er.24h 150 Mg PO DAILY Ambien (Zolpidem Tartrate) 5 Mg Tablet 5 Mg PO QHS Ambien (Zolpidem Tartrate) 5 Mg Tablet 5 Mg PO PRN QHS Imitrex (Sumatriptan Succinate) 100 Mg Tablet 100 Mg PO PRN DAILY PRN Zoloft (Sertraline Hcl) 50 Mg Tablet 50 Mg PO DAILY Zoloft (Sertraline Hcl) 25 Mg Tablet 75 Mg PO DAILY Pantoprazole Sodium 40 Mg Tablet.dr 40 Mg PO DAILYAC Analgesic [place] (Methyl Salicylate/Menthol) 28 Gm Oint...g. 1 Shayan TP PRN QID PRN Milk Of Magnesia (Magnesium Hydroxide) 2,400 Mg/10 Ml Oral.susp 2,400 Mg PO PRN QHS PRN Mag-Al Plus Xs Suspension (Mag Hydrox/Al Hydrox/Simeth) 30 Ml Oral.susp 15 Ml PO PRN AFTMEALHC PRN Zyrtec (Cetirizine Hcl) 10 Mg Tablet 10 Mg PO DAILY Albuterol Sulfate Conc Neb Soln (Albuterol Sulfate) 2.5 Mg/0.5 Ml Vial.neb 2.5 Mg NEB PRN Q4HRS PRN Tylenol (Acetaminophen) 325 Mg Tablet 650 Mg PO PRN Q6HRS PRN FENTANYL 75mcg/hr (Fentanyl) 1 Each Patch.td72 1 Patch TD Q72H NITROGLYCERIN SubLingual (Nitroglycerin) 0.4 Mg Tab.subl 0.4 Mg SL PRN Q5MIN PRN Hydromorphone Hcl 4 Mg Tablet 8 Mg PO PRN Q4HRS PRN Baclofen 10 Mg Tablet 25 Mg PO QID Ventolin Hfa Inhaler (Albuterol Sulfate) 18 Gm Hfa.aer.ad 2 Puff IH PRN Q4HRS PRN Ativan (Lorazepam) 1 Mg Tablet 1 Mg PO PRN Q6HRS PRN Maxalt (Rizatriptan Benzoate) 10 Mg Tablet 10 Mg PO PRN DAILY PRN Loratadine 10 Mg Tablet 10 Mg PO PRN DAILY PRN Nexium Capsule (Esomeprazole Magnesium) 20 Mg Capsule.dr 20 Mg PO DAILYAC Citalopram Hbr (Citalopram Hydrobromide) 40 Mg Tablet 40 Mg PO DAILY Ambien (Zolpidem Tartrate) 10 Mg Tablet 10 Mg PO HS Terazosin Hcl 10 Mg Capsule 10 Mg PO HS I have reviewed the current psychotropics carefully including drug interactions. Risk benefit ratio favors no change other than as noted in my dictated progress note. Diagnosis: Problems: (1) Anxiety disorder (2) Major depressive disorder, recurrent episode (3) Impulse control disorder KENN CRAFT MD Aug 28, 2018 23:03
[2018-08-28] MEDS: HYDROmorphone 2 MG TABLET PO PRN (23:29)
[2018-08-29 06:27] VITALS: BP 109/62
[2018-08-29] MEDS: BACLOFEN 10 MG TABLET PO SCH ×4 (07:53→20:45)
[2018-08-29] MEDS: buPROPion XL 150 MG TAB.ER.24H PO SCH (07:53)
[2018-08-29] MEDS: PANTOPRAZOLE 40 MG TABLET. PO SCH (07:53)
[2018-08-29] MEDS: SERTRALINE 50 MG TABLET. PO SCH (07:54)
[2018-08-29 16:30] VITALS: BP 115/76
[2018-08-29] MEDS: ZOLPIDEM 5 MG TABLET. PO SCH (20:45)
[2018-08-29] MEDS: TERAZOSIN 5 MG CAPSULE. PO SCH (20:45)
--- NOTE | 2018-08-29 21:14 | PN ---
DATE: 08/28/2018 PSYCHIATRIC PROGRESS NOTE This late entry 08/28/2018 covers elements not covered in my initial note. SUBJECTIVE: I met with the patient in the evening in his room. Reviewed information from Dr. Abad who had covered for me for the past few days. The patient slept 2-3/4 hours last night. He was up due to problems with his roommate. He tends to isolate in his room upset when another demented patient walks into his room, but he has not been aggressive. REVIEW OF SYSTEMS: No CV, , pulmonary, eye, ENT system symptoms on review. MENTAL STATUS EXAM: Reasonably oriented. Speech has some latency, coherent. Abstraction fair, computation impaired, language function intact, attention span short. Mood and affect somewhat withdrawn, but subjectively denies being depressed. No suicidal ideation. LABORATORY DATA: Reviewed. IMPRESSION: Unchanged from initial note. PLAN: No change from initial note with possible transition to nursing facility in the next couple of days. MAN Svetlana CRAFT MD DR: SUNIL/mikhail JOB#: [id number] / [id number]
[2018-08-29] MEDS: ZOLPIDEM 5 MG TABLET. PO PRN (22:26)
--- NOTE | 2018-08-29 22:47 | PDOC ---
Exam Note: Darion Note: Please also refer to the separate dictated note~for this date of service dictated separately.~Patient seen individually. Discussed the patient with Nursing staff reviewed the chart.~Reviewed interim history and current functioning. Reviewed vital signs,~Labs/ Radiology~and current medications noted below. Continue current treatment with the changes noted in the dictated addendum note Assessment: Vital Signs: Vital Signs Date Time Temp Pulse Resp B/P (MAP) Pulse Ox O2 Delivery O2 Flow Rate FiO2 08/29/18 20:45 86 115/76 08/29/18 16:30 98.1 16 100 Room Air I&O Intake and Output 08/29/18 07:00 Intake Total 700 ml Balance 700 ml Intake Oral 700 ml # Bowel Movements 1 Current Medications: Meds: Current Medications Acetaminophen (Tylenol) 650 mg PRN Q6HRS PRN PO PAIN / TEMP Last administered on 08/18/18 02:26; Start 08/12/18 at 01:00 Multi-Ingredient Ointment (Analgesic [place]) 1 shayan PRN QID PRN TP MUSCLE PAIN; Start 08/12/18 at 01:00 Al Hydroxide/Mg Hydroxide (Mylanta Plus Xs) 15 ml PRN AFTMEALHC PRN PO DYSPEPSIA; Start 08/12/18 at 01:00 Magnesium Hydroxide (Milk Of Magnesia) 2,400 mg PRN QHS PRN PO CONSTIPATION Last administered on 08/21/18at 08:51; Start 08/12/18 at 01:00 Albuterol Sulfate (Ventolin) 2.5 mg PRN Q4HRS PRN IH WHEEZING; Start 08/12/18 at 07:00 Lorazepam (Ativan) 1 mg PRN Q6HRS PRN PO ANXIETY / AGITATION Last administered on 08/18/18 02:26; Start 08/12/18 at 07:00 Nitroglycerin (Nitrostat) 0.4 mg PRN Q5MIN PRN SL CHEST PAIN; Start 08/12/18 at 07:00 Baclofen (Lioresal) 25 mg QID PO Last administered on 08/29/18 20:45; Start at 09:00 Citalopram Hydrobromide (CeleXA) 40 mg DAILY PO Last administered on 08/15/18 08:29; Start 08/12/18 at 09:00; Stop 08/16/18 at 09:47; Status DC Pantoprazole Sodium (Protonix) 40 mg DAILYAC PO Last administered on 08/29/18 07:53; Start 08/12/18 at 07:30 Fentanyl (Duragesic 75mcg/ Hr) 1 patch Q3DAYS TD Last administered on 07:39; Start 08/12/18 at 09:00 Hydromorphone HCl (Dilaudid) 8 mg PRN Q4HRS PRN PO PAIN Last administered on 23:29; Start 08/12/18 at 07:30 Cetirizine HCl (ZyrTEC) 10 mg PRN DAILY PRN PO ALLERGIES; Start 08/12/18 at 09: 00 Sumatriptan Succinate (Imitrex) 100 mg PRN DAILY PRN PO MIGRAINE HEADACHE Last administered on 08/15/18 23:16; Start 08/12/18 at 07:30 Terazosin HCl (Hytrin) 10 mg QHS PO Last administered on 08/29/18 20:45; Start 08/12/18 at 21:00 Zolpidem Tartrate (Ambien) 5 mg HS PO Last administered on 08/29/18 20:45; Start 08/12/18 at 21:00 Zolpidem Tartrate (Ambien) 5 mg PRN QHS PRN PO INSOMNIA, MR X1 WITHIN 2 HRS Last administered on 08/29/18 22:26; Start 08/12/18 at 07:30 Sertraline HCl (Zoloft) 50 mg DAILY PO Last administered on 08/16/18 09:40; Start 08/13/18 at 09:00; Stop 08/16/18 at 16:48; Status DC Sertraline HCl (Zoloft) 75 mg DAILY PO Last administered on 08/29/18 07:54; Start 08/17/18 at 09:00 Zolpidem Tartrate (Ambien) 5 mg 1X ONCE PO Last administered on 08/16/18 23:45 ; Start 08/16/18 at 23:45; Stop 08/16/18 at 23:46; Status DC Bupropion HCl (Wellbutrin Xl) 150 mg DAILY PO Last administered on 08/29/18 07 :53; Start 08/18/18 at 09:00 Hydroxyzine HCl (Atarax) 25 mg PRN QHS PRN PO INSOMNIA, MAY REPEAT X1 Last administered on 08/21/18at 22:31; Start 08/18/18 at 19:30 Active Scripts Active Reported Hydroxyzine Hcl 25 Mg Tablet 25 Mg PO PRN QHS PRN Wellbutrin Xl (Bupropion Hcl) 150 Mg Tab.er.24h 150 Mg PO DAILY Ambien (Zolpidem Tartrate) 5 Mg Tablet 5 Mg PO QHS Ambien (Zolpidem Tartrate) 5 Mg Tablet 5 Mg PO PRN QHS Imitrex (Sumatriptan Succinate) 100 Mg Tablet 100 Mg PO PRN DAILY PRN Zoloft (Sertraline Hcl) 50 Mg Tablet 50 Mg PO DAILY Zoloft (Sertraline Hcl) 25 Mg Tablet 75 Mg PO DAILY Pantoprazole Sodium 40 Mg Tablet.dr 40 Mg PO DAILYAC Analgesic [place] (Methyl Salicylate/Menthol) 28 Gm Oint...g. 1 Shayan TP PRN QID PRN Milk Of Magnesia (Magnesium Hydroxide) 2,400 Mg/10 Ml Oral.susp 2,400 Mg PO PRN QHS PRN Mag-Al Plus Xs Suspension (Mag Hydrox/Al Hydrox/Simeth) 30 Ml Oral.susp 15 Ml PO PRN AFTMEALHC PRN Zyrtec (Cetirizine Hcl) 10 Mg Tablet 10 Mg PO DAILY Albuterol Sulfate Conc Neb Soln (Albuterol Sulfate) 2.5 Mg/0.5 Ml Vial.neb 2.5 Mg NEB PRN Q4HRS PRN Tylenol (Acetaminophen) 325 Mg Tablet 650 Mg PO PRN Q6HRS PRN FENTANYL 75mcg/hr (Fentanyl) 1 Each Patch.td72 1 Patch TD Q72H NITROGLYCERIN SubLingual (Nitroglycerin) 0.4 Mg Tab.subl 0.4 Mg SL PRN Q5MIN PRN Hydromorphone Hcl 4 Mg Tablet 8 Mg PO PRN Q4HRS PRN Baclofen 10 Mg Tablet 25 Mg PO QID Ventolin Hfa Inhaler (Albuterol Sulfate) 18 Gm Hfa.aer.ad 2 Puff IH PRN Q4HRS PRN Ativan (Lorazepam) 1 Mg Tablet 1 Mg PO PRN Q6HRS PRN Maxalt (Rizatriptan Benzoate) 10 Mg Tablet 10 Mg PO PRN DAILY PRN Loratadine 10 Mg Tablet 10 Mg PO PRN DAILY PRN Nexium Capsule (Esomeprazole Magnesium) 20 Mg Capsule.dr 20 Mg PO DAILYAC Citalopram Hbr (Citalopram Hydrobromide) 40 Mg Tablet 40 Mg PO DAILY Ambien (Zolpidem Tartrate) 10 Mg Tablet 10 Mg PO HS Terazosin Hcl 10 Mg Capsule 10 Mg PO HS I have reviewed the current psychotropics carefully including drug interactions. Risk benefit ratio favors no change other than as noted in my dictated progress note. Diagnosis: Problems: (1) Anxiety disorder (2) Major depressive disorder, recurrent episode (3) Impulse control disorder KENN CRAFT MD Aug 29, 2018 22:47
[2018-08-30 06:16] VITALS: BP 127/80
[2018-08-30] MEDS: BACLOFEN 10 MG TABLET PO SCH (08:25)
[2018-08-30] MEDS: buPROPion XL 150 MG TAB.ER.24H PO SCH (08:25)
[2018-08-30] MEDS: PANTOPRAZOLE 40 MG TABLET. PO SCH (08:26)
[2018-08-30] MEDS: SERTRALINE 50 MG TABLET. PO SCH (08:26)
[2018-08-30] MEDS: fentaNYL 75MCG/HR 1 PATCH PATCH TD SCH (08:30)
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
--- NOTE | 2018-08-30 23:01 | PDOC ---
Exam Note: Darion Note: Please also refer to the separate dictated note~for this date of service dictated separately.~Patient seen individually. Discussed the patient with Nursing staff reviewed the chart.~Reviewed interim history and current functioning. Reviewed vital signs,~Labs/ Radiology~and current medications noted below. Continue current treatment with the changes noted in the dictated addendum note Assessment: Vital Signs: Vital Signs Date Time Temp Pulse Resp B/P (MAP) Pulse Ox O2 Delivery O2 Flow Rate FiO2 08/30/18 06:16 97.5 88 16 127/80 (96) 96 08/29/18 16:30 Room Air I&O Intake and Output 08/30/18 07:00 Intake Total 1300 ml Balance 1300 ml Intake Oral 1300 ml Current Medications: Meds: Current Medications Acetaminophen (Tylenol) 650 mg PRN Q6HRS PRN PO PAIN / TEMP Last administered on 08/18/18 02:26; Start 08/12/18 at 01:00; Stop 08/30/18 at 11:27; Status DC Multi-Ingredient Ointment (Analgesic [place]) 1 shayan PRN QID PRN TP MUSCLE PAIN; Start 08/12/18 at 01:00; Stop 08/30/18 at 11:27; Status DC Al Hydroxide/Mg Hydroxide (Mylanta Plus Xs) 15 ml PRN AFTMEALHC PRN PO DYSPEPSIA; Start 08/12/18 at 01:00; Stop 08/30/18 at 11:27; Status DC Magnesium Hydroxide (Milk Of Magnesia) 2,400 mg PRN QHS PRN PO CONSTIPATION Last administered on 08/21/18 08:51; Start 08/12/18 at 01:00; Stop 08/30/18 at 11:27; Status DC Albuterol Sulfate (Ventolin) 2.5 mg PRN Q4HRS PRN IH WHEEZING; Start 08/12/18 at 07:00; Stop 08/30/18 at 11:27; Status DC Lorazepam (Ativan) 1 mg PRN Q6HRS PRN PO ANXIETY / AGITATION Last administered on 08/18/18 02:26; Start 08/12/18 at 07:00; Stop 08/30/18 at 11:27; Status DC Nitroglycerin (Nitrostat) 0.4 mg PRN Q5MIN PRN SL CHEST PAIN; Start 08/12/18 at 07:00; Stop 08/30/18 at 11:27; Status DC Baclofen (Lioresal) 25 mg QID PO Last administered on 08/30/18 08:25; Start at 09:00; Stop 08/30/18 at 11:27; Status DC Citalopram Hydrobromide (CeleXA) 40 mg DAILY PO Last administered on 08/15/18 08:29; Start 08/12/18 at 09:00; Stop 08/16/18 at 09:47; Status DC Pantoprazole Sodium (Protonix) 40 mg DAILYAC PO Last administered on 08/30/18 08:26; Start 08/12/18 at 07:30; Stop 08/30/18 at 11:27; Status DC Fentanyl (Duragesic 75mcg/ Hr) 1 patch Q3DAYS TD Last administered on 08:30; Start 08/12/18 at 09:00; Stop 08/30/18 at 11:27; Status DC Hydromorphone HCl (Dilaudid) 8 mg PRN Q4HRS PRN PO PAIN Last administered on 23:29; Start 08/12/18 at 07:30; Stop 08/30/18 at 11:27; Status DC Cetirizine HCl (ZyrTEC) 10 mg PRN DAILY PRN PO ALLERGIES; Start 08/12/18 at 09: 00; Stop 08/30/18 at 11:27; Status DC Sumatriptan Succinate (Imitrex) 100 mg PRN DAILY PRN PO MIGRAINE HEADACHE Last administered on 08/15/18 23:16; Start 08/12/18 at 07:30; Stop 08/30/18 at 11:27; Status DC Terazosin HCl (Hytrin) 10 mg QHS PO Last administered on 08/29/18 20:45; Start 08/12/18 at 21:00; Stop 08/30/18 at 11:27; Status DC Zolpidem Tartrate (Ambien) 5 mg HS PO Last administered on 08/29/18 20:45; Start 08/12/18 at 21:00; Stop 08/30/18 at 11:27; Status DC Zolpidem Tartrate (Ambien) 5 mg PRN QHS PRN PO INSOMNIA, MR X1 WITHIN 2 HRS Last administered on 08/29/18at 22:26; Start 08/12/18 at 07:30; Stop 08/30/18 at 11:27; Status DC Sertraline HCl (Zoloft) 50 mg DAILY PO Last administered on 08/16/18at 09:40; Start 08/13/18 at 09:00; Stop 08/16/18 at 16:48; Status DC Sertraline HCl (Zoloft) 75 mg DAILY PO Last administered on 08/30/18at 08:26; Start 08/17/18 at 09:00; Stop 08/30/18 at 11:27; Status DC Zolpidem Tartrate (Ambien) 5 mg 1X ONCE PO Last administered on 08/16/18at 23:45 ; Start 08/16/18 at 23:45; Stop 08/16/18 at 23:46; Status DC Bupropion HCl (Wellbutrin Xl) 150 mg DAILY PO Last administered on 08/30/18at 08 :25; Start 08/18/18 at 09:00; Stop 08/30/18 at 11:27; Status DC Hydroxyzine HCl (Atarax) 25 mg PRN QHS PRN PO INSOMNIA, MAY REPEAT X1 Last administered on 08/21/18at 22:31; Start 08/18/18 at 19:30; Stop 08/30/18 at 11:27 ; Status DC Active Scripts Active Reported Hydroxyzine Hcl 25 Mg Tablet 25 Mg PO PRN QHS PRN Wellbutrin Xl (Bupropion Hcl) 150 Mg Tab.er.24h 150 Mg PO DAILY Ambien (Zolpidem Tartrate) 5 Mg Tablet 5 Mg PO QHS Ambien (Zolpidem Tartrate) 5 Mg Tablet 5 Mg PO PRN QHS May repeat x1 within 2hrs of scheduled dose Imitrex (Sumatriptan Succinate) 100 Mg Tablet 100 Mg PO PRN DAILY PRN Zoloft (Sertraline Hcl) 25 Mg Tablet 75 Mg PO DAILY Pantoprazole Sodium 40 Mg Tablet.dr 40 Mg PO DAILYAC Analgesic [place] (Methyl Salicylate/Menthol) 28 Gm Oint...g. 1 Shayan TP PRN QID PRN Milk Of Magnesia (Magnesium Hydroxide) 2,400 Mg/10 Ml Oral.susp 2,400 Mg PO PRN QHS PRN Mag-Al Plus Xs Suspension (Mag Hydrox/Al Hydrox/Simeth) 30 Ml Oral.susp 15 Ml PO PRN AFTMEALHC PRN Zyrtec (Cetirizine Hcl) 10 Mg Tablet 10 Mg PO DAILY Albuterol Sulfate Conc Neb Soln (Albuterol Sulfate) 2.5 Mg/0.5 Ml Vial.neb 2.5 Mg NEB PRN Q4HRS PRN Tylenol (Acetaminophen) 325 Mg Tablet 650 Mg PO PRN Q6HRS PRN FENTANYL 75mcg/hr (Fentanyl) 1 Each Patch.td72 1 Patch TD Q72H NITROGLYCERIN SubLingual (Nitroglycerin) 0.4 Mg Tab.subl 0.4 Mg SL PRN Q5MIN PRN Hold for SBP less than or equal ro 90mmHg. Call provider for chest pain unrelieved by 1 sublingual nitroglycerin, may repeat x2 if chest pain persists. Hydromorphone Hcl 4 Mg Tablet 8 Mg PO PRN Q4HRS PRN Baclofen 10 Mg Tablet 25 Mg PO QID Ativan (Lorazepam) 1 Mg Tablet 1 Mg PO PRN Q6HRS PRN Terazosin Hcl 10 Mg Capsule 10 Mg PO HS I have reviewed the current psychotropics carefully including drug interactions. Risk benefit ratio favors no change other than as noted in my dictated progress note. Diagnosis: Problems: (1) Anxiety disorder (2) Major depressive disorder, recurrent episode (3) Impulse control disorder KENN CRAFT MD Aug 30, 2018 23:01
== END 2018-08-30 11:00 | DRG 885 ==
LOC: GEROPSY 08-12 00:44
PROVIDERS: ADMIT Psychiatry & Neurology Psychiatry; ATTEND Psychiatry & Neurology Psychiatry
DX: F33.9 Major depressive disorder, recurrent, unspecified (principal); E44.0 Moderate protein-calorie malnutrition; F63.9 Impulse disorder, unspecified; F41.9 Anxiety disorder, unspecified; G71.00 Muscular dystrophy, unspecified; G60.0 Hereditary motor and sensory neuropathy; F41.1 Generalized anxiety disorder; F51.04 Psychophysiologic insomnia; F03.90 Unspecified dementia, unspecified severity, without behavioral disturbance, psychotic disturbance, mood disturbance, and anxiety; G47.33 Obstructive sleep apnea (adult) (pediatric); I10 Essential (primary) hypertension; J45.909 Unspecified asthma, uncomplicated; K21.9 Gastro-esophageal reflux disease without esophagitis; Z79.899 Other long term (current) drug therapy; G43.909 Migraine, unspecified, not intractable, without status migrainosus; G47.00 Insomnia, unspecified; Z88.8 Allergy status to other drugs, medicaments and biological substances; Z68.28 Body mass index [BMI] 28.0-28.9, adult
CPT/HCPCS: 36415; 80053; 80061; 82306; 83036; 83540; 83550; 83735; 84436; 84443; 84480; 85025; 86592; 93005; 92610